=== PATIENT | female | born 1995 | race Caucasian/White ===

== ENCOUNTER 2016-10-06 10:09 | Inpatient (IN) | payer BC ==
[~2016-10-06] VITALS: Ht 165.1 cm; Wt 88.6 kg
[2016-10-06] MEDS ORDERED: LACTATED RINGER'S 1000ML 1,000 ML IV PRN (11:21)
[2016-10-06] MEDS ORDERED: PATIENT'S ALLERGY INFO NEEDS ENTERED SCH (11:30)
[2016-10-06] MEDS ORDERED: PENICILLIN G POTASSIUM IV 6 MU in DEXTROSE 5% 250ML 250 ML IV ONE (11:45)
[2016-10-06] MEDS: LACTATED RINGER'S 1000ML 1,000 ML IV SCH ×2 (12:03→18:18)
[2016-10-06 12:30] LABS: HEMATOCRIT 39.9 % (37-47); MEAN CELL VOLUME 81.9 fL (80-100); MEAN CORPUSCULAR HEMOGLOBIN 27.3 pg (25-34); MEAN CORPUSCULAR HGB CONC 33.3 g/dl (32-36); MEAN PLATELET VOLUME 10.7 fL (7.4-10.4); PLATELET COUNT 328 K/uL (130-400); RED BLOOD COUNT 4.87 M/uL (4.2-5.4); WHITE BLOOD COUNT 12.12 K/uL (4.8-10.8)
[2016-10-06 12:37] VITALS: Ht 165.1 cm; Wt 88.6 kg
[2016-10-06] MEDS ORDERED: PRENTAB26 PO (12:42)
--- NOTE | 2016-10-06 12:44 | HISTORY & PHYSICAL EXAMINATION ---
DATE OF ADMISSION: 10/06/2016 LABOR AND DELIVERY ADMISSION NOTE CHIEF COMPLAINT: Uterine contractions. HISTORY OF PRESENT ILLNESS: The patient is a 21-year-old at 38 weeks and 4 days of gestation, who is presenting to labor and delivery with contractions. She woke up this morning at 4:00 a.m. with contractions which been every 4-5 minutes and getting more painful. She denies leakage of fluid or vaginal bleeding. She reports good movements. She denies headaches, change in her vision, nausea, vomiting, epigastric or right upper quadrant pain. She denies chest pain, shortness of breath, fever, chills or leg pain. Her has been uncomplicated. PAST MEDICAL HISTORY: Unremarkable. The patient denies any medical problems. PAST SURGICAL HISTORY: Tonsillectomy. MEDICATIONS: vitamins. ALLERGIES: No known drug allergies. SOCIAL HISTORY: The patient denies smoking, alcohol or drug use. GYNECOLOGIC HISTORY: The patient denies any history of STDs including Chlamydia, gonorrhea, herpes. LABS: Her GC chlamydia cultures were negative. Her blood type was O positive, antibody screen negative. TSH was 1.23, H&H was 13/40, platelets 393. Hepatitis B surface antigen negative, HIV nonreactive, RPR nonreactive, rubella titer positive. Hepatitis C antibody negative. Urine culture was negative. Quad screening test was negative. One hour Glucola was 98. Repeat H&H was 12/36.7, platelets 321. GBS culture was positive on September 16. PHYSICAL EXAMINATION: GENERAL: The patient is alert, oriented x3, not in acute distress. CARDIOVASCULAR SYSTEM: S1, S2, RRR. LUNGS: Clear to auscultation bilaterally. ABDOMEN: Soft, gravid. EXTREMITIES: Nontender, no edema. PELVIC: Cervix is 5 cm dilated, 80% effaced, -2 with bulging membranes and vertex. VITAL SIGNS: Her maternal temperature was 98.7, pulse 90, respirations 20, blood pressure 137/86. heart rate 140s, category 1. Tocometer contractions every 3-4 minutes. ASSESSMENT AND PLAN: The patient is a 21-year-old 1, para 0 at 38 weeks and 4 days of gestation, presenting in labor with contractions and cervical change. Vital signs stable, afebrile. No medical problems. Group B streptococcus positive. heart rate reassuring. Plan is admit her, start IV fluids, start IV penicillin for Group B streptococcus, expectant management and anticipate spontaneous vaginal delivery. The patient desires epidural when she is painful. All questions were answered. JEAN PIERRE
[2016-10-06] MEDS: PENICILLIN G POTASSIUM IV 3 MU in DEXTROSE 5% 100ML 100 ML IV PRN ×2 (16:00→20:28)
[2016-10-06] MEDS ORDERED: FENTANYL 2MCG/ML ROPIV 1.25MG/ML 100ML BAG EPI ONE (17:25)
[2016-10-06] MEDS ORDERED: EpHEDrine SULFATE INJ 50 MG/ML AMP ONE (17:25)
[2016-10-06] MEDS ORDERED: BUPIVACAINE 0.25% 30 ML VIAL ONE (17:25)
[2016-10-06] MEDS ORDERED: FENTANYL CITRATE INJ 50 MCG/1 ML 2 ML VIAL ONE (17:26)
[2016-10-06] MEDS ORDERED: LACTATED RINGER'S 1000ML 500 ML IV PRN ×2 (18:26→20:00)
[2016-10-06] MEDS ORDERED: NALOXONE HCL INJ 1 MG in SODIUM CHLORIDE 0.9% 1000ML 1,000 ML IV PRN (18:26)
[2016-10-06] MEDS ORDERED: FENTANYL 2MCG/ML ROPIV 1.25MG/ML 100ML BAG EPI PRN (18:30)
[2016-10-06] MEDS ORDERED: NALBUPHINE HCL INJ 10 MG/ML AMP IV PRN (18:30)
[2016-10-06] MEDS ORDERED: EpHEDrine SULFATE INJ 50 MG/ML AMP IV PRN (18:30)
[2016-10-06] MEDS ORDERED: NALOXONE HCL INJ 0.4 MG/1 ML VIAL/CARP IV PRN (18:30)
[2016-10-06] MEDS ORDERED: DiphenhydrAMINE HCL 50 MG/ML VIAL IV PRN (18:30)
[2016-10-06] MEDS ORDERED: OXYTOCIN 30 UNITS/500ML NSS IV PRN (20:00)
[2016-10-06] MEDS ORDERED: NURSING VERBAL MED ORDER ONE (23:30)
[2016-10-06] MEDS ORDERED: CEFAZOLIN SOD 2000 MG in DEXTROSE 5% 50ML IV STA (23:31)
[2016-10-07] MEDS ORDERED: LACTATED RINGER'S 1000ML 1,000 ML IV SCH (00:06)
[2016-10-07] MEDS ORDERED: MISOPROSTOL 200 MCG TAB PR STA (00:12)
[2016-10-07] MEDS ORDERED: ACETAMINOPHEN 325 MG TAB PO PRN (00:15)
[2016-10-07] MEDS ORDERED: HYDROCORTISONE ACETATE 25 MG SUPP PR PRN (00:15)
[2016-10-07] MEDS ORDERED: LANOLIN OINT EXT PRN ×2 (00:15)
[2016-10-07] MEDS ORDERED: OXYCODONE/ACETAMINOPHEN 5-325 TAB PO PRN (00:15)
[2016-10-07] MEDS ORDERED: SUPERCREAM 0.870 % 15GM JAR EXT PRN (00:15)
[2016-10-07] MEDS ORDERED: OXYTOCIN 30 UNITS/500ML NSS IV PRN (00:15)
[2016-10-07] MEDS ORDERED: DIPHTHERIA/TETANUS/PERTUSSIS 0.5 ML SYR/VIAL IM. ONE (00:15)
[2016-10-07] MEDS ORDERED: MEASLES, MUMPS & RUBELLA VIRUS VIAL SQ. ONE (00:15)
[2016-10-07] MEDS ORDERED: BENZOCAINE 20% AER SPR 82.5 GM CAN EXT PRN (00:15)
[2016-10-07] MEDS: IBUPROFEN 600 MG TAB PO PRN ×4 (00:16→22:34)
--- NOTE | 2016-10-07 00:43 | Anesthesia Procedure Note ---
Anesthesia Epidural Removal Nt Date & Time Oct 07, 2016 at 00:42 Vital Signs Pain Intensity: 3.0 Notes Mental Status: alert / awake / arousable, participated in evaluation Nausea / Vomiting: adequately controlled Pain: adequately controlled Airway Patency, RR, SpO2: stable & adequate BP & HR: stable & adequate Hydration State: stable & adequate Neuraxial Anesthesia: was administered, sensory block is resolving Anesthetic Complications: no major complications apparent, pt satisfied with anesthetic care Epidural: removed without complications, with tip intact
--- NOTE | 2016-10-07 00:48 | DELIVERY SUMMARY ---
DATE OF OPERATION: 10/06/2016 TIME OF DELIVERY OF BABY: 2256 p.m. TIME OF DELIVERY OF PLACENTA: 2312 p.m. DETAILS OF DELIVERY: Patient was found to be fully dilated and desired to push. She pushed for about 15 minutes and delivered the head without difficulty. Shoulders were delivered with minimal traction and the baby was delivered completely. There was a loose nuchal cord around the next x1, which was reduced. Baby was handed off to the mother, where the mouth and nose were suctioned, cord was clamped x2 and cut at 1 minute and it was a 3-vessel cord. Cord blood was obtained. Vagina and perineum were checked for lacerations. There was a small second-degree laceration in the perineum, which was repaired with 2-0 Vicryl in a running locked fashion. Good hemostasis was achieved. Placenta was found to be in the vagina and delivered spontaneously and appeared to be intact and complete. Uterus was explored and found irregular surface at the fundus and posterior wall, which was felt to be retained placenta. The patient and the family was informed. She had good pain control with her epidural. Her nurse applied fundal pressure and my right hand in the vagina aiding, manually a boom curette was introduced, into the uterine cavity. The irregular surface was curetted and small pieces of placenta were obtained and sent to pathology. The uterine wall was found to be smooth. The instruments were removed from vagina. Bed side Ultrasound was done and found to have a regular 6-mm endometrium with no signs of retained placenta. Estimated blood loss was 300 ml. Procedure was ended and the mom and the baby tolerated the procedure well. Sponge, lap and needle counts were correct x2 at the end of the procedure. The baby was a viable female with Apgars 8/9. Mother received penicillin during labor for GBS and cefazolin IV during curettage. I was present during whole procedure. I attest to the content of the Intraoperative Record and any orders documented therein. Any exceptions are noted below. JEAN PIERRE
[2016-10-07 02:45] VITALS: BP 125/83; PULSE 98; TEMP 37
[2016-10-07] MEDS ORDERED: MISOPROSTOL 200 MCG TAB ONE ×2 (02:50→02:51)
[2016-10-07 05:00] VITALS: BP 118/74; PULSE 87; TEMP 36.7
--- NOTE | 2016-10-07 07:06 | OB/GYN Progress Note ---
PHYSICIAN ANESTHESIOLOGIST Progress Note Date of Service Oct 07, 2016. Subjective conversation w/ patient, physical exam Ambulation: ambulating normally Voiding: no voiding problems Passing Gas: Yes Diet Tolerance: Regular Diet Lochia: Moderate Feeding Type: Breast Feeding Pain: 3/10 Notes: Doing well. Tolerating regular diet. Ambulating without difficulty. Lochia moderate. Objective Vital Signs Date Time Temp Pulse Resp B/P (MAP) Pulse Ox O2 Delivery O2 Flow Rate FiO2 10/07/16 05:00 36.7 87 18 118/74 (89) Room Air 10/07/16 02:45 37.0 98 18 125/83 (97) Room Air Physical Exam General Appearance: WELL-APPEARING Respiratory/Chest: chest non-tender, lungs clear Cardiovascular: regular rate, rhythm Abdomen: normal bowel sounds, soft Fundus: Firm Extremities: normal range of motion, non-tender, no calf tenderness Laboratory Results Last 24 Hours Test 10/06/16 12:01 White Blood Count 12.12 K/uL Red Blood Count 4.87 M/uL Hemoglobin 13.3 g/dL Hematocrit 39.9 % Mean Corpuscular Volume 81.9 fL Mean Corpuscular Hemoglobin 27.3 pg Mean Corpuscular Hemoglobin Concent 33.3 g/dl RDW Standard Deviation 43.9 fL RDW Coefficient of Variation 14.8 % Platelet Count 328 K/uL Mean Platelet Volume 10.7 fL Assessment and Plan Post- Day Number: 1 Continue Routine Care: -Continue routine care -Anticipate d/c home tomorrow
[2016-10-07 07:30] VITALS: BP 132/87; PULSE 72; TEMP 36.9; O2SAT 99
[2016-10-07] MEDS: DOCUSATE SODIUM 100 MG CAP PO SCH ×2 (08:18→20:11)
[2016-10-07] MEDS: FERROUS SULFATE 325 MG TAB PO SCH (08:19)
[2016-10-07] MEDS: PRENATAL VITAMIN TAB PO SCH (08:19)
[2016-10-07 11:19] VITALS: BP 138/87; PULSE 82; TEMP 36.8; O2SAT 98
[2016-10-07 15:45] VITALS: BP 112/71; PULSE 88; TEMP 36.5; O2SAT 100
[2016-10-07 20:00] VITALS: BP 125/78; PULSE 87; TEMP 36.5
[2016-10-08 00:30] VITALS: BP 130/87; PULSE 80; TEMP 36.5
[2016-10-08 08:10] LABS: HEMATOCRIT 33.4 % (37-47)
[2016-10-08] MEDS: DOCUSATE SODIUM 100 MG CAP PO SCH (08:34)
[2016-10-08] MEDS: PRENATAL VITAMIN TAB PO SCH (08:34)
[2016-10-08] MEDS: FERROUS SULFATE 325 MG TAB PO SCH (08:34)
[2016-10-08 09:00] VITALS: BP 107/73; PULSE 85; TEMP 36.9; O2SAT 99
--- NOTE | 2016-10-08 10:47 | OB/GYN Progress Note ---
GOVERNMENT AFFAIRS DIRECTOR Progress Note Date of Service Oct 08, 2016. Subjective conversation w/ patient, physical exam Ambulation: ambulating normally Voiding: no voiding problems Passing Gas: Yes Diet Tolerance: Regular Diet Lochia: Moderate Review of Systems Constitutional: No fever, No chills, No sweats, No weight loss, No weakness, No fatigue, No problem reported Respiratory: No cough, No sputum, No wheezing, No shortness of breath, No dyspnea on exertion, No dyspnea at rest, No hemoptysis, No problem reported Cardiac: No chest pain, No orthopnea, No PND, No edema, No claudication, No palpitations, No problem reported Breast: No see HPI, No breast lump, No change in shape, No nipple discharge, No breast pain, No problem reported Abdomen: No pain, No nausea, No vomiting, No diarrhea, No constipation, No GI bleeding, No problem reported Female : No see HPI, No dysuria, No urinary frequency, No hematuria, No incontinence, No abnormal vaginal bleeding, No vaginal discharge, No problem reported Objective Vital Signs Date Time Temp Pulse Resp B/P (MAP) Pulse Ox O2 Delivery O2 Flow Rate FiO2 10/08/16 09:00 36.9 85 16 107/73 (84) 99 Room Air 10/08/16 00:30 Room Air 10/08/16 00:30 36.5 80 18 130/87 (101) Room Air 10/07/16 20:00 36.5 87 18 125/78 (94) Room Air 10/07/16 15:45 36.5 88 18 112/71 (85) 100 Room Air 10/07/16 15:45 100 Room Air 10/07/16 11:19 36.8 82 16 138/87 (104) 98 Room Air Physical Exam General Appearance: WELL-APPEARING, WD/WN, NO APPARENT DISTRESS Respiratory/Chest: chest non-tender, lungs clear, normal breath sounds, no respiratory distress, no accessory muscle use Cardiovascular: regular rate, rhythm, no edema, no gallop, no JVD, no murmur Abdomen: normal bowel sounds, non tender, soft, no organomegaly, no pulsatile mass Fundus: Firm Extremities: normal range of motion, non-tender, normal inspection, no pedal edema, no calf tenderness Laboratory Results Last 24 Hours Test 10/08/16 07:39 Hemoglobin 11.0 g/dL Hematocrit 33.4 % Assessment and Plan Post- Day Number: 1 Continue Routine Care: PPD 32 pt doing well Nurse had expressed concern with pt' affect spoke to pt about her affect. she denies depression, suicidal ideations or feeling of hurting anyone pt is with spouse at time of discussion D/c home with instructions and resources and knows to call office if she ever feels depressed and or thinks she needs to be seen
[2016-10-08] MEDS ORDERED: MTR600X PO (10:48)
--- NOTE | 2016-10-08 10:48 | Discharge Instructions ---
Discharge Instructions Date of Service Oct 08, 2016. Admission Reason for Admission: R/O Labor Discharge Discharge Diagnosis / Problem: Discharge Goals Goal(s): Routine recovery after delivery Activity Recommendations Activity Limitations: resume your previous activity ACTIVITY RECOMMENDATIONS: * Gradual return to full activity over the next 2-3 weeks. * No lifting - nothing heavier than baby over the next 2-3 weeks. * Do not engage in vigorous exercise, sexual activity or sports until cleared by your physician. * Do not drive or operate any motorized equipment until cleared by your physician. * You may shower/bathe daily. BREAST CARE: If you are not breast feeding: * Wear a supportive bra 24 hours a day for one to two weeks. * Avoid stimulating your breasts and nipples as much as possible during the first few weeks after delivery. * When taking a shower, have the warm water hit your back, not breasts. * When your breasts feel full, apply ice packs. Usually three to four times a day helps ease the discomfort. * Take a mild pain medication (Tylenol/Motrin) when you are uncomfortable. If breast feeding: * Use breast milk to lubricate nipples. Lansinoh cream may be used for sore nipples. You do not need to remove cream prior to breast feeding. If using a different brand of cream, check the label for directions regarding removal of cream prior to nursing. * Wear a supportive bra. * If having problems with breasts or breast feeding, call a bmw sales consultant or your health care provider. EPISIOTOMY CARE: After delivery, if you have an episiotomy (stitches), the following steps will ease discomfort and aid healing. * For the first 24 hours after delivery, place ice packs next to your episiotomy to help reduce swelling. * After the first 24 hour-period, sitz baths, either portable or in the tub, are suggested. A shower with a shower arm sprayed over the episiotomy may be comforting. * Madisyn care should be done after each voiding and bowel movement. Squirt warm water from a plastic bottle over the perineum (region of the body between the anus and urinary opening) and pat dry. * Use Dermoplast to ease discomfort. Shake container. [place] directly over the episiotomy. * Place a Tucks on a clean sanitary pad next to your episiotomy. OVER THE COUNTER MEDICATION: * For discomfort or pain, you may use Acetaminophen (Tylenol), Ibuprofen (Advil ), or Naproxen (Aleve) following the package directions. * For constipation you may use Colace following the package directions. SPECIAL CARE INSTRUCTIONS: When you are discharged from the hospital, it is important for you to follow the instructions listed below: * During the first week at home, you should be able to care for yourself and your baby. In addition, the usual light household activities are encouraged. * Limit your activities to the way you feel. Do not try to clean the house or move furniture. Be sensible. * If you actively engage in sports and have done so up until the time of your delivery, you may resume these activities as soon as you feel able. This may take up to one month or even longer. Use good judgment. * Continue to take your vitamins for at least six weeks after the of your baby. * Your diet need not be limited unless you were on a special diet before your delivery. Breast-feeding mothers need around 2500 calories per day and at least 64-80 ounces of fluid per day (8 to 10 glasses). * You should eat foods from the four major food groups. Crash diets or fad diets are to be avoided. Eating lean meats, fresh fruits and vegetables, low-fat dairy products, high fiber foods and a regular exercise program, will help you get back to your pre- weight without putting your health at risk. * Constipation is sometimes a problem after delivery. Take a mild laxative as needed. If breast feeding, Milk of Magnesia is acceptable to use. You may use a suppository or Fleets enema if no episiotomy. * A daily shower or tub bath is suggested. Be sure to thoroughly and gently dry the perineum. * A bloody vaginal discharge will usually continue until around four weeks post . A small amount of bleeding may continue for as long as six weeks. Vaginal discharge changes from the bright red bleeding after delivery to pink then brownish and finally yellowish-pink before becoming white and disappearing. * Bleeding may increase with activity. Your first period may come in 4-8 weeks. If you are breast feeding, your period may be delayed even longer. * [place] (sex) can begin whenever both you and your partner feel comfortable and do not have any form of genital infection. It is recommended that you wait until after your return appointment and discuss with your physician. If you have questions, please talk to your health care practitioner. A condom should be used to prevent infection and . * Foreplay, gentle intercourse and lubrication is very important the first several times to prevent pain. A water-based lubricant such as K-Y jelly or Astroglide may be used. * Tampons may be used six weeks after delivery. * Douching should be avoided for 6 weeks after delivery. * If you have RH negative blood and your baby is RH positive, you will receive RHOGAM by injection prior to discharge. The nurse will give you a card to keep with you that has the date and place that you received RHOGAM after delivery. * During your care, you had a Rubella screen done to check for the presence of rubella antibodies in your blood. If your test was negative, you will receive a Rubella vaccine prior to discharge. This vaccine may cause a fever, soreness at the injection site and flu-like symptoms. If these symptoms persist, notify your health care practitioner. is not advised for three months after a Rubella vaccine. There is a higher chance of having a baby with defects if conceived within three months of getting the vaccine. * If you were discharged 24 hours from delivery or before 48 hours: Visiting nurses will come to your home 48 hours after discharge to assess you and your baby. The visiting nurse will meet with you while you are in the hospital to arrange a time and get directions to your home. * Verbalizes understanding of car seat law as reviewed with patient nursing. * Car Seat hand-out given and reviewed with patient by nursing. * Shaken baby information reviewed with patient by nursing. Call you doctor if: * Heavy bleeding (saturating several pads an hour) or passing clots the size of your fist. * A fever >101 degrees F (38.3 degrees C) on two occasions four hours apart and/or chills. * Unusual pain in the pelvic or vaginal areas. * "Baby Blues" lasting longer than two weeks. If you have any questions or concerns, call your health care practitioner at . FOLLOW-UP VISIT: * Please call the office at to schedule a 6 week examination. It is important you keep this appointment. * It is important for you to make arrangements for either yearly or twice yearly check-ups thereafter. . Current Hospital Diet Patient's current hospital diet: Regular OB Diet Discharge Diet Recommended Diet: Regular Diet Pending Studies Studies pending at discharge: no Medical Emergencies . Who to Call and When: Medical Emergencies: If at any time you feel your situation is an emergency, please call 911 immediately. . Non-Emergent Contact Non-Emergency issues call your: Specialist . . "Provider Documentation" section prepared by Jaiden Chariez. . VTE Core Measure Inpt VTE Proph given/why not?: Treatment not indicated
[2016-10-08 14:45] VITALS: BP_DIAS 73; PULSE 85; TEMP 36.9
[2016-10-08] MEDS ORDERED: BISACODYL 5 MG TABEC PO SCH (20:00)
[2016-10-09] MEDS ORDERED: BISACODYL 10 MG SUPP PR PRN (07:00)
== END 2016-10-08 15:55 | disposition home or self-care (01) | DRG 775 ==
LOC: C.LD 10:09 → C.OPB 10:09 → C.LD 11:22 → C.OBG 10-07 02:45
PROVIDERS: ADMIT Obstetrics & Gynecology; ATTEND Obstetrics & Gynecology
PROC: 0KQM0ZZ Repair Perineum Muscle, Open Approach (ICD-10-PCS; principal; 2016-10-07)
PROC: 10E0XZZ Delivery of Products of Conception, External Approach (ICD-10-PCS; principal; 2016-10-07)
DX: O69.81X1 Labor and delivery complicated by cord around neck, without compression, fetus 1 (principal); O70.1 Second degree perineal laceration during delivery; Z22.330 Carrier of Group B streptococcus; Z37.0 Single live birth; Z3A.38 38 weeks gestation of pregnancy

== ENCOUNTER 2023-02-27 04:47 | Inpatient (IN) ==
--- OUTSIDE RECORDS SUMMARY | 2023-02-27 04:56 | External Medical Summary ---
Author Name Unknown Address Unknown Organization [id number]:[facility] - [address] [facility] [address] Laboratory Report Ordering Provider Test Date Status ANGELIQUE MASSEY 02/24/2023 19:08:41 Final ADMITTED patient Observation Date Value Abnormality Reference (Units ) Status Adenovirus DNA [Presence] in Nasopharynx by ZEKE with non-probe detection 02/24/2023 19:08:41 Negative Negative Final Human coronavirus 229E RNA [Presence] in Nasopharynx by ZEKE with non-probe detection 02/24/2023 19:08:41 Negative Negative Final Human coronavirus HKU1 RNA [Presence] in Nasopharynx by ZEKE with non-probe detection 02/24/2023 19:08:41 Negative Negative Final Human coronavirus NL63 RNA [Presence] in Nasopharynx by ZEKE with non-probe detection 02/24/2023 19:08:41 Negative Negative Final Human coronavirus OC43 RNA [Presence] in Nasopharynx by ZEKE with non-probe detection 02/24/2023 19:08:41 Negative Negative Final SARS-CoV-2 (COVID-19) RNA [Presence] in Nasopharynx by ZEKE with non-probe detection 02/24/2023 19:08:41 Positive Abnormal Negative Final Coronavirus SARS detected by PCR (amplified probe). Test results reported to [facility]. Human metapneumovirus RNA [P resence] in Nasopharynx by ZEKE with non-probe detection 02/24/2023 19:08:41 Negative Negative Final Rhinovirus+Enterovirus RNA [ Presence] in Nasopharynx by ZEKE with non-probe detection 02/24/2023 19:08:41 Negative Negative Final Influenza virus A RNA [Prese nce] in Nasopharynx by ZEKE with non-probe detection 02/24/2023 19:08:41 Negative Negative Final Influenza virus B RNA [Prese nce] in Nasopharynx by ZEKE with non-probe detection 02/24/2023 19:08:41 Negative Negative Final Parainfluenza virus 1 RNA [P resence] in Nasopharynx by ZEKE with non-probe detection 02/24/2023 19:08:41 Negative Negative Final Parainfluenza virus 2 RNA [P resence] in Nasopharynx by ZEKE with non-probe detection 02/24/2023 19:08:41 Negative Negative Final Parainfluenza virus 3 RNA [P resence] in Nasopharynx by ZEKE with non-probe detection 02/24/2023 19:08:41 Negative Negative Final Parainfluenza virus 4 RNA [P resence] in Nasopharynx by ZEKE with non-probe detection 02/24/2023 19:08:41 Negative Negative Final Respiratory syncytial virus RNA [Presence] in Nasopharynx by ZEKE with non-probe detection 02/24/2023 19:08:41 Negative Negative F inal Bordetella pertussis.pertuss is toxin promoter region [Presence] in Nasopharynx by ZEKE with non-probe detection 02/24/2023 19:08:41 Negative Negative Final Chlamydophila pneumoniae DNA [Presence] in Nasopharynx by ZEKE with non-probe detection 02/24/2023 19:08:41 Negative Negative Final Mycoplasma pneumoniae DNA [P resence] in Nasopharynx by ZEKE with non-probe detection 02/24/2023 19:08:41 Negative Negative Final Bordetella parapertussis IS1 001 DNA [Presence] in Nasopharynx by ZEKE with non-probe detection 02/24/2023 19:08:41 Negative Negative F inal
The primers that detect Rhinovirus may cross react with some Enterorviruses. The validation of bronchial specimens, tracheal aspirates, and throats for this assay was developed and performance characteristics determined by [email or web address]. The validation of alternate specimen types has not been cleared or approved by the U.S. Food and Drug Administration (FDA). It has been determined that such clearance or approval is not necessary. Performing Location [facility] - [facility] [address] [place] [facility] [id number]
--- OUTSIDE RECORDS SUMMARY | 2023-02-27 04:56 | External Medical Summary | Summary of Care ---
Author Name Unknown Organization [facility] Address [address] [place] [address] Phone [phone] Care Team Providers Care Fine Arts Chair Name Role Phone Harriet Ellis MD Primary Care Prov ider Reason for Visit * Reason Onset Date Comments Contractions 02/27/2023 Encounter Details Date Type Department Care Team (Late st Contact Info) Description 02/27/2023 Telephone [facility] Obstetrics [address] [place] [address] Katy Birmingham MD [address] [place] [address] Contractions Allergies Active Allergy Reactions Criticality Noted Date Comments Pollen Other (Please comment) 03/06/2016 documented as of this encounter (statuses as of 02/27/2023) Medications Medication Sig Dispensed Refills Start Date End Date Status Docusate Sodium 100 MG Oral Capsule (Colace)Indication s:Constipation during , antepartum Take 1 Capsule by mouth daily as needed for Constipation. 30 Capsule 2 07/22/2022 Active Complete Susy DHA 29-1-200 & 200 MG OralIndications:Nur pervision of high-risk , unspecified trimester Take one tablet and one capsule by mouth daily as directed on the package. 60 Each 12 07/22/2022 Active Nirmatrelvir&Riton avir 300/100 20 x 150 MG & 10 x 100MG Oral Tablet Therapy Pack (Paxlovid (300/100)) Take 2 pink tablets of Nirmatrelvir and 1 white tablet of Ritonavir two times a day by mouth. 30 Tablet 0 02/24/2023 Active documented as of this encounter (statuses as of 02/27/2023) Active Problems Problem Noted Date Diagnosed Date tachycardia before the onset of labor 01/31 COVID-19 affecting in third trimester 02/24/2023 Echogenic intracardiac focus of fetus on ultrasound 10/06/2022 Last Assessment & Plan: This is a variant of normal and is not expected to resolve during . No further ultrasound follow-up indicated. Constipation during , antepartum 2022 Supervision of high-risk , third trimes ter 07/22/2022 Overview: Estimated Date of Delivery: 03/01/23 Continue vitamin. O positive. Rubella and varicella immune. Qnatal low risk. S/p anatomy ultrasound at [facility]. Passed 1 glucose test. S/p CBC - no anemia. Tdap vaccine completed on 12/11/2022. GBS culture negative. Completed influenza vaccine. contraception: partner vasectomy. Desires to breastfeed. Desires a breast pump. 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 Qnatal low risk. Declined genetic counseling at this time. Last Assessment & Plan: Recommend cffDNA (Qnatal) screening after 10 weeks. Consider genetics consult if patient has additional questions or concerns regarding this history. History of IUFD 09/27/2019 Overview: History of demise at 37w2d of baby boy (Bhavesh) with Trisomy 22. 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 Serial growth ultrasounds and echocardiogram were not performed in most recent , as etiology of CHD and loss were known to be related to chromosomal abnormality. Last Assessment & Plan: She presents for a anatomy survey. She has a history of a prior child with multiple anomalies, including CHD. This child was diagnosed with Trisomy 22, and the ended with a loss at term. In her last , we reviewed risks/benefits of additional follow-up and elected for routine care following the anatomic survey. Labs reviewed: -- cffDNA low risk for aneuploidy We reviewed the results of today's ultrasound. The estimated weight is appropriate for gestational age. An echogenic intracardiac focus is noted. The remainder of the visualized anatomy is unremarkable in appearance. The amniotic fluid amount appears normal. Ultrasound is not able to identify all anomalies, but it is reassuring that no anomalies were seen today. Anxiety disorder affecting , antepartum 11/29/2018 Overview: Patient reports situational anxiety in , but states that she is managing well without treatment at this time. Denies current depression symptoms, as well as suicidal or homicidal ideation. Last Assessment & Plan: ANXIETY AND DEPRESSION CONSIDERATIONS: Untreated maternal anxiety and depression may be associated with an increased risk of multiple poor obstetrical outcomes including miscarriages, low weight, and delivery. Women with a history of anxiety or depression are at risk for recurrence both during and/or the period. Studies of first-trimester SSRI exposure do not demonstrate consistent data to support an increased risk for structural malformations. Anti-anxiety or depression medications have been associated with transient effects (withdrawal syndrome). RECOMMENDATIONS: Mental illness can and should be treated during when the benefits of treatment outweigh potential risks. Referral to behavioral health services as clinically indicated. Depression complicating , antepartum Last Assessment & Plan: DISCUSSION: 1. Discussed with patient that depression can and should be treated during when the benefits of treatment outweigh potential risks. Risks of leaving maternal depression untreated or inadequately treated are maternal suicide/homicide, an increased risk of depression/psychosis, relapse during and impaired maternal-child bonding. Risks of untreated mental illness pose additional risks in , such as miscarriage, low weight, and delivery. 2. Discussed that although there have been reports in the past regarding anti-depressant therapy and abnormalities or complications, research has not confirmed or supported this claim. Studies of first-trimester SSRI exposure do not demonstrate consistent data to support an increased risk for structural malformations, however, echocardiogram is indicated at this time for patients who were treated with paroxetine (Paxil) in the first trimester. 3. Anti- depressants have been associated with transient effects (withdrawal syndrome). RECOMMENDATIONS: 1. Women who are stable from a psychiatric standpoint may be able to stay on their medication after consultation between their mental health provider and their obstetric provider. However, for most women, accessible and acceptable mental health treatment may be very limited. 2. Women who would like to discontinue their medication may attempt medication tapering and discontinuation under the direction of their prescribing physician. 3. Women who have recurrent depression or who have depression despite medication may benefit from psychotherapy to replace or augment medication. 4. Women with severe depression should continue their medication. 5. Alternative treatments such as light therapy, acupuncture treatment and omega-3 fatty acids may be tried if the patient desires. 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 Saw Hem/Onc in 2020 for same. Most recent platelet count normal: Latest Reference Range & Units 07/22/22 10:24 PLT 140 - 400 K/uL 374 Last Assessment & Plan: 1. We reviewed thrombocytosis and most recent platelet counts. Recommend assessing platelet count again in second trimester. 2. Consider re-referral to Hematology if needed. Estimated Date of Delivery Comme nts Yes 03/01/2023 Based on Ultraso und documented as of this encounter (statuses as of 02/27/2023) Resolved Problems Problem Noted Date Diagnosed Date Resolved Date Abnormal uterine bleeding (AUB) 08/29/2020 07/23/2022 Vaginal delivery 04/29/2020 06/08/2020 Vaginal discharge 03/26/2020 04/24/2020 21 weeks gestation of 12/23/2019 01/24/2020 Encounter for scre ening for chromosomal anomalies 10/25/2019 12/23/2019 Moderate vaginal bleeding 05/11/2019 Other specified re lated conditions, unspecified trimester 04/09/2019 07/23/2022 Chromosomal abnormality in f etus, affecting management of mother, antepartum 03/03/2019 020 Last Assessment & Plan: We met in conjunction with Madelin Camacho LG. We reviewed the range of outcomes with non-mosaic Trisomy 22, with an overall poor prognosis expected. She notes that the possibility of prolonged life outside of the initial hospitalization is a concern to her, and is interested in further information that may give a more precise estimate of life expectancy. We discussed that this can vary depending on the conditions identified, and that details regarding the cardiac anatomy likely have a major role in determining this, though ultimately it will be difficult to give a precise estimate. As she is interested in this information, we suggested that she have a follow-up with pediatric cardiology prior to her planned MDC at 36 weeks, as this may provide further information that can be used in the care discussion. She was agreeable to this plan. 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 She has elected to pursue palliative care measures and was originally planning to be seen again at 36 weeks gestation. However, she requested earlier follow-up to confirm that the prior noted findings are present and without significant improvement. We discussed that today's findings are overall consistent with the prior exams. The heart continues to appear abnormal. The bowel appears dilated, with peristalsis noted. This is suggestive of an intestinal abnormality such as atresia/obstruction. The clubbed foot is not well-visualized. growth was not assessed. The amniotic fluid appears low, with a single pocket of 3 cm visualized. The genitalia continue to appear abnormal. Supervision of high-risk pre gnancy, unspecified trimester 11/29/2018 06/08/2020 Thrombocytosis 11/29/2018 02/14/2020 Last Assessment & Plan: She reports a history of thrombocytosis, as well as easy bleeding and bruising. She notes that she had bleeding after her prior delivery, and that she and her family are concerned about the possibility of a hemorrhage in this as well. We reviewed that a number of factors can lead to hemorrhage. However, with her report of easy bleeding/bruising in the past as well as thrombocytosis, I suggested consideration of a referral to hematology for further assessment. Of note, her most recent platelet count on 02/17/19 was normal at 371,000. Abnormal quad screen 11/24/2018 020 Encounter for supervision of high risk in second trimester, antepartum 11/24/2018 05/06/2019 Anxiety in in [place] trimester, antepartum 11/15/2018 05/06/2019 Reactive airway disease in pediatric patient 8 09/23/2017 Encounter for supervision of normal first in third trimester 05/28/2016 01/26/2017 Encounter for supervision of normal first in first trimester 03/06/2016 08/20/2016 documented as of this encounter (statuses as of 02/27/2023) Immunizations Name Administration Dates Next Due COVID-19 mRNA, LNP-s, No Pre serve, 2-Dose Series (Moderna) 05/09/2020,03/28/2020 COVID-19, mRNA, LNP-s, PF, B ooster, 100mcg/0.5mg (Moderna) 01/31/2021 Covid-19, Mrna, Lnp-s, Pf, Bivalent, 30 Mcg, IM, 12 yrs and above (Pfizer) 01/06/2022 PPD 08/19/2017 Seasonal Influenza, PF, 6 M & above, IM , (FluLaval or Fluzone) 12/01/2022,12/26/2021,11/24/2019, 0 18 Seasonal Influenza, Quadriva lent, No Preserve, IM 11/17/2016 Seasonal Influenza, Split, I IV3, With Preserve, Inj 11/22/2015 TDAP (age 10 and older)(Boostrix) 2022,02/14/2020,03/22/2019,07/25/19 17 documented as of this encounter Social History Tobacco Use Types Packs/Day Years Used Date Smoking Tobacco: Never Smokeless Tobacco: Never Alcohol Use Standard Drinks/Week Comments Not Currently 0 (1 standard drink = 0.6 oz pur e alcohol) Denies in PHQ-2 Answer Date Recorded PHQ-2 Score 4 07/08/2018 Hunger Vital Sign Answer Date Recorded Within the past 12 months, y ou worried that your food would run out before you got the money to buy more. Patient refused Within the past 12 months, t he food you bought just didn't last and you didn't have money to get more. Patient refused 06/2022 [place] Depression Scale Answer Date Recorded [place] Depression Scale Total 2 12/11/2022 The thought of harming myself has occurred to me . Never 12/11/2022 Education Answer Date Recorded What is the highest level of school you have completed or the highest degree you have received? Bachelor's degree (e.g., BA, AB, BS) 11/29/2018 Estimated Date of Delivery Comme nts Yes 03/01/2023 Based on Ultraso und Sex and Gender Information Value Date Recorded Sex Assigned at Not on file Gender Identity Female 07/04/2022 2:31 PM EDT Sexual Orientation Not on file Job Start Date Occupation Industry Not on file Not on file Not on file documented as of this encounter Functional Status Functional Status Response Date of Assess ment Are you deaf or do you have serious difficulty h earing? No 04/27/2020 Are you blind or do you have serious difficulty seeing, even when wearing glasses? No 04/27/2020 Do you have serious difficul ty walking or climbing stairs? (5 years old or older) No 04/27/2020 Do you have difficulty dress ing or bathing? (5 years old or older) No 04/27/2020 Because of a physical, menta l, or emotional condition, do you have difficulty doing errands alone such as visiting a doctor s office or shopping? (15 years old or older) No 04/27/19 21 Cognitive Status Response Date of Assessm ent Because of a physical, menta l, or emotional condition, do you have serious difficulty concentrating, remembering, or making decisions? (5 years old or older) No 04/27/2020 documented as of this encounter Miscellaneous Notes * Telephone Encounter - Katy Birmingham MD - 02/27/2023 3:09 AM EST Patient called and identified by name and ate of . Contractions since 5AM yesterday now happening every 5 minutes lasting about two minutes. Extremely painful. Reports FM. Denies LOF and VB. Patient en route to L&D. documented in this encounter Plan of Treatment Upcoming Encounters Date Type Department Care Team (Late st Contact Info) Description 02/27/2023 1:30 PM EST Imaging Radiology, [place] [address] [place] [phone] 03/03/2023 10:30 AM EST Office Visit Gynecology/Obstetics [place] [address] [place] [phone] Jessica Junior PA-C [address] [place], [place] [phone] 03/09/2023 9:14 PM EST - 03/09/2023 10:33 PM EST Surgery [facility], OB Triage, Women's Lower Level 1st Floor [address] [place] [address] Josafat Mello MD [address] [place] [address] INDUCTION FOR VAGINAL DELIVERY Scheduled Procedures Name Priority Associated Diagnoses Date/Ti me INDUCTION FOR VAGINAL DELIVERY 41 weeks gestation of 03/09/2023 9:14 PM EST Health Maintenance Due Date Last Done Comments Hepatitis B (1 of 3 - 3-dose series) 1995 Depression Screening 07/09/2019 07/08/2018 COVID-19 Vaccine ( season) 2022 01/06/2022, 01/31/2021, 05/09/2020, Additional history exists HPV/Co-Test 2023 Cervical Cancer Screening 02/12/2025 Pap Smear 02/12/2025 02/12/2022, 03/03, 08/18/2014, Additional history exists DTaP,Tdap,and Td Vaccines (5 - Td or Tdap) 12/11/2032 12/11/2022, 02/14/2020, 03/22/2019, Additional history exists Influenza Vaccine (FLU shot) Completed 04/2022, 12/26/2021, 11/24/2019, Additional history exists GARDASIL-HPV IMMUNIZATION SERIES Aged Out No longer eligible based on patient's age to complete this topic MENINGOCOCCAL (MENACTRA/MENVEO) Aged Out No longer eligible based on patient's age to complete this topic Pneumococcal Vaccine: Pediatrics (0 to 5 Years) and At-Risk Patients (6 to 64 Years) Aged Out No longer eligible based on patient's age to complete this topic documented as of this encounter Medical Devices Not on filedocumented as of this encounter Additional Health Concerns Infection Onset Date Last Indicated Resolved Time COVID-19 (confirmed) 02/24/2023 02/24/2023 documented as of this encounter Advance Directives Latest Code Status on File Code Status Date Activated Date Inactivated Comments Full Code 04/27/2020 8:12 PM 04/29/2020 3:46 PM This order reflects the patients wishes and were consensually agreed upon. Code Status History Code Status Date Activated Date Inactivated Comments Full Code 04/08/2019 6:13 PM 04/09/2019 8:15 PM This or [place] reflects the patients wishes and were consensually agreed upon. Care Teams Fine Arts Chair Relationship Specialty Start Date End Date Harriet Ellis MD [address] [place] [address] PCP - General Family Medicine 05/12/18 documented as of this encounter
--- OUTSIDE RECORDS SUMMARY | 2023-02-27 04:56 | External Medical Summary | Summary of Care ---
Author Name Unknown Organization [facility] Address [address] [place] [address] Phone [phone] Care Team Providers Care Net Programmer Analyst Name Role Phone Harriet Ellis MD Primary Care Prov ider Reason for Visit * Reason Comments Return Visit Encounter Details Date Type Department Care Team (Late st Contact Info) Description 02/24/2023 3:45 PM EST Office Visit Gynecology/Obstetics [place] [address] [place] [address] Jessica Junior PA-C [address] [place] [address] Supervision of high-risk , third trimester*; History of abnormality in previous , currently ; History of IUFD; COVID-19 affecting in third trimester Allergies Active Allergy Reactions Criticality Noted Date Comments Pollen Other (Please comment) 03/06/2016 documented as of this encounter (statuses as of 02/24/2023) Medications Medication Sig Dispensed Refills Start Date End Date Status Docusate Sodium 100 MG Oral Capsule (Colace)Indications: Constipation during , antepartum Take 1 Capsule by mouth daily as needed for Constipation. 30 Capsule 2 07/22/2022 Active Complete DHA 29-1-200 & 200 MG OralIndications:Supe rvision of high-risk , unspecified trimester Take one tablet and one capsule by mouth daily as directed on the package. 60 Each 12 07/22/2022 Active documented as of this encounter (statuses as of 02/24/2023) Active Problems Problem Noted Date Diagnosed Date COVID-19 affecting in third trimester 02/24/2023 Echogenic [...] as of this encounter (statuses as of 02/24/2023) Resolved Problems Problem Noted Date Diagnosed Date [...] & Plan: We met in conjunction with ALEXANDER Reynolds. We reviewed the range of outcomes with [...] as of this encounter (statuses as of 02/24/2023) Immunizations Name Administration Dates Next Due COVID-19 [...] money to get more. Patient refused 06/2022 [place] Depression Scale Answer Date Recorded [place] Depression Scale Total 2 12/11/2022 The thought [...] on file documented as of this encounter Last Filed Vital Signs Vital Sign Reading Time Taken Comments Blood Pressure 132/76 02/24/2023 3:45 PM EST Pulse 132 02/24/2023 3:45 PM EST Temperature 38.8 C (101.9 F) 02/24/2023 3:[address] Respiratory Rate - - Oxygen Saturation 98% 02/24/2023 3:45 PM EST Inhaled Oxygen Concentration - - Weight 94.3 kg (208 lb) 02/24/2023 3:45 PM EST Height - - Body Mass Index 33.57 07/22/2022 9:35 AM EDT documented in this encounter Functional Status Functional Status Response [...] No 04/27/2020 documented as of this encounter Progress Notes * Jessica Junior PA-C - 02/24/2023 4:02 PM EST Latesha Hernandez presents for visit at 39w2d. BP 132/76 | Pulse 132 | Temp (!) 38.8 C (101.9 F) (Tympanic) | Wt 94.3 kg (208 lb) | LMP 05/25/2022 (Approximate) | SpO2 98% | BMI 33.57 kg/m | BSA 2.1 m Patient has tested positive for COVID-19 today at around 11:30 am today. Denies vaginal bleeding, leaking of fluid, vaginal pressure, contractions, abdominal pain, or abnormal vaginal discharge. Denies blurry vision or right upper quadrant pain. Patient states she feels a decrease in baby's movements. Patient reports that she got 10 movements in 2 hours, but feels the movements are less. Patient reports that she had a headache today. Patient had fevers starting today, sinus congestion,and cough. Patient reports that test was negative yesterday, but positive for COVID today. Patient denies shortness of breath. Patient reports that highest temperature was around 102.7 degrees Farenheit. Patient took Tylenol at 3:20 pm. Physical Exam General: alert and oriented, no acute distress Pulmonary: normal respiratory effort, no accessory muscle use. Abdomen: gravid, soft, non-tender heart rate: high 170's bpm to low 180's bpm [facility] Problems (from 07/17/22 to present) Problem Noted Resolved Supervision of high-risk , third trimester 07/22/2022 by Jessica Junior PA-C No Estimated Date of Delivery: 03/01/23 Continue vitamin. O positive. Rubella and varicella immune. Qnatal low risk. S/p anatomy ultrasound at [facility]. Passed 1 glucose test. S/p CBC - no anemia. Tdap vaccine completed on 12/11/2022. GBS culture negative. Completed influenza vaccine. contraception: partner vasectomy. Desires to breastfeed. Desires a breast pump. 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 Qnatal low risk. Declined genetic counseling at this time. History of IUFD 09/27/2019 by Gareth Montelongo MD No History of demise at 37w2d of baby boy (Bhavesh) with Trisomy 22. 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 Serial growth ultrasounds and echocardiogram were not performed in most recent , as etiology of CHD and loss were known to be related to chromosomal abnormality. Anxiety disorder affecting , antepartum 11/29/2018 by Pita Scanlon CRNP No Patient reports situational anxiety in , but states that she is managing well without treatment at this time. Denies current depression symptoms, as well as suicidal or homicidal ideation. Depression complicating , antepartum 11/29/2018 by Pita Scanlon CRNP No Plan: -Spoke with Dr. Mello at [facility] labor and delivery and provided report. Dr. Mello said that he would let the pre-admit know patient is arriving. -Advised patient to go to [facility] labor and delivery immediately due to fever, maternal and tachycardia, and decrease in baby's movements. Patient verbalized understanding and agrees. -Patient aware of labor and pre-eclampsia symptoms to monitor for. Return to the office based on labor and delivery visit today or sooner if any concerns. Jessica Gu PA-C documented in this encounter Nursing Notes * Roxann López RN - 02/24/2023 3:55 PM EST Patient presents for return . Started feeling sick on Kiki [place]. Tested positive for Covid today. Took Tylenol around 1520 for fever. Reports feeling baby move but it is less - she did get 10 movements in 2 hours. documented in this encounter Plan of Treatment Upcoming Encounters Date Type Department Care Team (Late st Contact Info) Description 02/27/2023 1:30 PM EST Imaging Radiology, [address] [phone] Health Maintenance Due Date Last Done Comments Hepatitis B (1 of 3 - 3-dose series) 1995 Depression Screening 07/09/2019 07/08/2018 COVID-19 Vaccine ( - season) 2022 01/06/2022, 01/31/2021, 05/09/2020, Additional history [...] Not on filedocumented as of this encounter Visit Diagnoses Diagnosis Supervision of high-risk , third trimester- Primary History of abnormality in previous , currently with other poor obstetric history History of IUFD COVID-19 affecting in third trimester documented in this encounter Advance Directives Latest Code Status [...] and were consensually agreed upon. Care Teams Net Programmer Analyst Relationship Specialty Start Date End Date Harriet Ellis MD [address] [place] [id number] PCP - General Family Medicine 05/12/18 documented as of this encounter"
--- OUTSIDE RECORDS SUMMARY | 2023-02-27 04:56 | External Medical Summary | Summary of Care ---
Author Name Unknown Organization [facility] Address [address] [place] [facility] [place] [address] Phone [phone] Care Team Providers Care Thermostat Repairer Name Role Phone Harriet Ellis MD Primary Care Prov ider Reason for Visit * Reason Comments Return Visit Encounter Details Date Type Department Care Team (Late st Contact Info) Description 02/24/2023 3:45 PM EST Office Visit Gynecology/Obstetics [place] [address] [place] [phone] Jessica Junior PA-C [address] [place] [address] Supervision of high-risk , third trimester*; History of abnormality in previous , currently ; History of IUFD; COVID-19 affecting in third trimester Allergies Active Allergy Reactions Criticality Noted Date Comments Pollen Other (Please comment) 03/06/2016 documented as of this encounter (statuses as of 02/25/2023) Medications Medication Sig Dispensed Refills Start Date [...] as of this encounter (statuses as of 02/25/2023) Active Problems Problem Noted Date Diagnosed Date [...] as of this encounter (statuses as of 02/25/2023) Resolved Problems Problem Noted Date Diagnosed Date [...] as of this encounter (statuses as of 02/25/2023) Immunizations Name Administration Dates Next Due COVID-19 [...] money to get more. Patient refused 06/2022 Corning Depression Scale Answer Date Recorded Corning Depression Scale Total 2 12/11/2022 The thought [...] 170's bpm to low 180's bpm OB [place] Problems (from 07/17/22 to present) Problem Noted [...] No Plan: -Spoke with Dr. Mello at [facility] labor and delivery and provided report. Dr. Mello said that he would let the pre-admit know patient is arriving. -Advised patient to go to [facility] labor and delivery immediately due to fever, [...] in 2 hours. documented in this encounter Miscellaneous Notes * Addendum Note - Jessica Junior PA-C - 02/25/2023 10:33 PM EST Addended by: JESSICA JUNIOR on: 02/25/2023 10:33 PM Modules accepted: Level of Service documented in this encounter Plan of Treatment Upcoming Encounters Date Type Department Care Team (Late st Contact Info) Description 02/27/2023 1:30 PM EST Imaging Radiology, [address] [phone] 03/09/2023 9:14 PM EST - 03/09/2023 10:33 PM EST Surgery [facility], OB Triage, Women's Lower Level 1st Floor [address] [place] [address] Josafat Mello MD [address] [place] [address] INDUCTION FOR VAGINAL DELIVERY Scheduled Procedures Name [...] of IUFD COVID-19 affecting in third trimester 41 weeks gestation of Post term , unspecified episode of care documented in this encounter Additional Health Concerns Infection Onset Date Last Indicated Resolved Time Respiratory Rule-Out 02/24/2023 02/24/2023 023 9:31 PM EST COVID-19 Rule-Out 02/24/2023 02/24/2023 02/24/2023 9:31 PM EST COVID-19 (confirmed) 02/24/2023 02/24/2023 documented as of [...] and were consensually agreed upon. Care Teams Thermostat Repairer Relationship Specialty Start Date End Date Harriet Ellis MD [address] [place] [id number] PCP - General Family Medicine 05/12/18 documented as of this encounter"
--- OUTSIDE RECORDS SUMMARY | 2023-02-27 04:56 | External Medical Summary | Summary of Care ---
Author Name Unknown Organization [facility] Address [address] [facility] [place] [address] Phone [phone] Care Team Providers Care Photograph Mounter Name Role Phone Harriet Ellis MD Primary Care Prov ider Reason for Visit * Reason Onset Date Comments Test Results 02/06/2023 Encounter Details Date Type Department Care Team ([facility] st Contact Info) Description 02/06/2023 Telephone Gynecology/Obstetics [place] [address] [place] [phone] Jessica Junior PA-C [address] [place] [address] Test Results Allergies Active Allergy Reactions Criticality Noted Date Comments Pollen Other (Please comment) 03/06/2016 documented as of this encounter (statuses as of 02/07/2023) Medications Medication Sig Dispensed Refills Start Date [...] as of this encounter (statuses as of 02/07/2023) Active Problems Problem Noted Date Diagnosed Date Echogenic intracardiac focus of fetus on ultrasound [...] Tdap vaccine completed on 12/11/2022. GBS culture at 36 weeks. Completed influenza vaccine. contraception: partner vasectomy. Desires [...] as of this encounter (statuses as of 02/07/2023) Resolved Problems Problem Noted Date Diagnosed Date [...] as of this encounter (statuses as of 02/07/2023) Immunizations Name Administration Dates Next Due COVID-19 mRNA, LNP-s, No Pre serve, 2-Dose Series (Moderna) 05/09/2020,03/28/2020 COVID-19, mRNA, LNP-s, PF, B ooster, 100mcg/0.5mg (Moderna) 01/31/2021 Covid-19, Mrna, Lnp-s, Pf, Bivalent, 30 Mcg, IM, 12 yrs and above (Pfizer) 01/06/2022 PPD 08/19/2017 SEASONAL INFLUENZA, PF, 6 M & Above, IM , (FLULAVAL or FLUZONE) 12/01/2022,12/26/2021,11/24/2019, 0 18 Seasonal Influenza, Quadriva lent, [...] money to get more. Patient refused 06/2022 Nazlini Depression Scale Answer Date Recorded Nazlini Depression Scale Total 2 12/11/2022 The thought [...] (15 years old or older) No 04/27/19 Cognitive Status Response Date of Assessm ent Because of a physical, menta l, or emotional condition, do you have serious difficulty concentrating, remembering, or making decisions? (5 years old or older) No 04/27/2020 documented as of this encounter Miscellaneous Notes * Telephone Encounter - Harriet Steinberg OSA - 02/06/2023 4:10 PM EST Apt made pt aware * Telephone Encounter - Jessica Junior PA-C - 02/06/2023 4:03 PM EST Please get patient scheduled for repeat ultrasound in 3 weeks. Thank you. * Telephone Encounter - Jessica Junior PA-C - 02/06/2023 4:02 PM EST Spoke with patient. Discussed results with Dr. Montelongo. Patient notified that growth and TISHA are normal. Dr. Montelongo states that EFW + TISHA are normal. Advised repeat ultrasound in 3 weeks. Patient agreeable. Answered patient's questions. documented in this encounter Plan of Treatment Upcoming Encounters Date Type Department Care Team (Late st Contact Info) Description 02/12/2023 8:45 AM EST Office Visit Gynecology/Obstetics [place] [address] [place] [phone] Jessica Junior PA-C [address] [place] [address] 02/17/2023 8:45 AM EST Office Visit Gynecology/Obstetics [place] [address] [place] [phone] Jessica Junior PA-C [address] [place] [address] 02/24/2023 3:45 PM EST Office Visit Gynecology/Obstetics [place] [address] [place] [phone] Jessica Junior PA-C [address] [place] [address] 02/27/2023 1:30 PM EST Imaging Radiology, [place] [address] [place] [phone] Scheduled Orders Name Type Priority Associated Diagnoses Orde r Schedule US PREG FOLLOW-UP EACH FETUS Medical Imaging Routine Supervision of high-risk , third trimester History of IUFD Fundal height low for dates in third trimester Expected: 02/27/2023, Expires: 03/09/2024 Health Maintenance Due Date Last Done Comments [...] high-risk , third trimester- Primary History of IUFD Fundal height low for dates in third trimester documented in this encounter [...] and were consensually agreed upon. Care Teams Photograph Mounter Relationship Specialty Start Date End Date Harriet Ellis MD [address] [place] [phone] PCP - General Family Medicine 05/12/18 documented as of this encounter
--- OUTSIDE RECORDS SUMMARY | 2023-02-27 04:56 | External Medical Summary | Summary of Care ---
Author Name Unknown Organization [facility] Address [address] [place] [address] Phone [phone] Care Team Providers Care Dimensional Integration Engineer Name Role Phone aHrriet Ellis MD Primary Care Prov ider Reason for Visit * Reason Comments Return Visit Encounter Details Date Type Department Care Team (Late st Contact Info) Description 02/05/2023 3:15 PM EST Office Visit Gynecology/Obstetics [facility] [address] [place] [phone] Jessica Junior PA-C [address] [place] [address] Supervision of high-risk , third trimester*; History of abnormality in previous , currently ; History of IUFD; Anxiety disorder affecting , antepartum; Fundal height low for dates in third trimester Allergies Active Allergy Reactions [...] antepartum 2022 Supervision of high-risk , third [facility] 07/22/2022 Overview: Estimated Date of Delivery: 03/01/23 Continue vitamin. O positive. Rubella and varicella immune. Qnatal low risk. S/p anatomy ultrasound at [facility]. Passed 1 glucose test. S/p CBC - no anemia. Tdap vaccine completed on 12/11/2022. GBS culture at 36 weeks - obtained on 02/05/2023. Completed influenza vaccine. contraception: partner vasectomy. Desires [...] Plan: We met in conjunction with ALEXANDER Renyolds. We reviewed the range of outcomes with [...] money to get more. Patient refused 06/2022 Gabbs Depression Scale Answer Date Recorded Gabbs Depression Scale Total 2 12/11/2022 The thought [...] Sign Reading Time Taken Comments Blood Pressure 116/74 02/05/2023 3:24 PM EST Pulse - - Temperature - - Respiratory Rate - - Oxygen Saturation - - Inhaled Oxygen Concentration - - Weight 89.9 kg (198 lb 3.2 oz) 02/05/2023 3:24 P M EST Height - - Body Mass Index 31.99 07/22/2022 9:35 AM EDT documented in this [...] Progress Notes * Jessica Junior PA-C - 02/05/2023 3:26 PM EST Latesha Hernandez presents for visit at 36w4d. BP 116/74 | Wt 89.9 kg (198 lb 3.2 oz) | LMP 05/25/2022 (Approximate) | BMI 31.99 kg/m | BSA 2.05m Doing well. Denies vaginal bleeding, leaking of fluid, vaginal pressure, abdominal pain, or abnormal vaginal discharge. Denies blurry vision or right upper quadrant pain. Patient has intermittent headaches. Patient states she feels good movement. Patient has slightly more vaginal discharge. Patient denies vaginal burning, itching or odor. Patient reports that she has occasional jaden silverman contractions. Physical Exam General: alert and oriented, no acute distress Pulmonary: normal respiratory effort, no accessory muscle use. Abdomen: gravid, soft, non-tender heart rate: 140's bpm Fundal height: 34 cm Pelvic Exam: external genitalia and vagina anatomy within normal limits, GBS culture obtained today. Nitrazine negative. No pooling in the vagina on valsalva. Cervix visually closed. Office Equipment Technician Documentation Patient offered title curator and declined. OB [facility] Problems (from 07/17/22 to present) Problem Noted Resolved Supervision of high-risk , third trimester 07/22/2022 by Jessica Junior PA-C No Estimated Date of Delivery: 03/01/23 Continue vitamin. O positive. Rubella and varicella immune. Qnatal low risk. S/p anatomy ultrasound at [facility]. Passed 1 glucose test. S/p CBC - no anemia. Tdap vaccine completed on 12/11/2022. GBS culture at 36 weeks - obtained on 02/05/2023. Completed influenza vaccine. contraception: partner vasectomy. Desires [...] as well as suicidal or homicidal ideation. Plan: -GBS culture obtained today. -Growth ultrasound ordered. -O positive blood type. - contraception: partner vasectomy. -Desires to breastfeed. Counseled patient to call triage/go to labor and delivery if she has any vaginal bleeding, leaking of fluid, vaginal pressure, 6 or more painful contractions in an hour, abdominal pain, decreased movements, headaches, blurry vision, or right upper quadrant pain. Patient verbalized understanding. RTO in 1 week for return appointment or sooner if any concerns. Jessica Gu PA-C documented in this encounter Nursing Notes * Fatimah Guthrie RN - 02/05/2023 3:24 PM EST Routine OB check. Denies questions or complaints. documented in this encounter Plan of Treatment Upcoming Encounters Date Type Department Care Team (Late st Contact Info) Description 02/12/2023 8:45 AM EST Office Visit Gynecology/Obstetics [facility] [address] [place] [phone] Jessica Junior PA-C [address] [place] [address] 02/17/2023 8:45 AM EST Office Visit Gynecology/Obstetics [facility] [address] [place] [phone] Jessica Junior PA-C [address] [place] [address] 02/24/2023 3:45 PM EST Office Visit Gynecology/Obstetics [facility] [address] [place] [phone] Jessica Junior PA-C [address] [place] [address] 02/27/2023 1:30 PM EST Imaging Radiology, [facility] [address] [place] [phone] Health Maintenance Due Date Last Done Comments [...] Not on filedocumented as of this encounter Procedures Procedure Name Priority Date/Time Associated Diagnosis Comments GROUP B STREP CULTURE/PCR Routine 02/05/2023 3:50 PM EST Supervision of high-risk , third trimester documented in this encounter Results * US PREG FOLLOW-UP EACH FETUS (02/06/2023 2:13 PM EST) Anatomical Region Laterality Modality Pelvis, Body Ultrasound 02/06/2023 2:43 PM EST Impressions 02/06/2023 2:41 PM EST IMPRESSION 1. Growth within normal limits utilizing ELSIE from initial scan. 2. Normal TISHA 3. Vertex presentation. Narrative 02/06/2023 2:41 PM EST EXAM US PREG FOLLOW-UP EACH FETUS - 02/06/2023 2:13 pm HISTORY Fundal height low for dates. COMPARISON 07/21/2022 TECHNIQUE Sonographic examination performed. FINDINGS General : Walters Presentation: Vertex heart rate: 145 bpm TISHA: 10.1 cm which is between the 5th and 50th percentiles for this stage of . Placenta: Posterior Anatomy 4-chamber view: Seen Stomach: Seen Kidneys: Seen Bladder: Seen Biometry The previous study of 07/21/2022 estimated the date of delivery of 03/01/2023. Utilizing that date, current gestational age is 36 weeks 5 days. Biparietal diameter: 9.0 cm, 36w 2d Head circumference: 31.5 cm, 35w 2d Abdominal circumference: 30.8 cm, 34w 5d Femur length: 7.0 cm, 35w 5d Humeral length: 6.2 cm, 36w 0d HC/AC: 1.02, within normal limits EFW: 2622 g +/- 388 g which is the 19th percentile. Utilizing the date of delivery obtained from the initial scan, growth of the BPD, HC, AC, femur and humerus is within normal limits. Procedure Note Leon Tang MD - 02/06/2023 EXAM US PREG FOLLOW-UP EACH FETUS - 02/06/2023 2:13 pm HISTORY Fundal height low for dates. COMPARISON 07/21/2022 TECHNIQUE Sonographic examination performed. FINDINGS General : Walters Presentation: Vertex heart rate: 145 bpm TISHA: 10.1 cm which is between the 5th and 50th percentiles for this stageof . Placenta: Posterior Anatomy 4-chamber view: Seen Stomach: Seen Kidneys: Seen Bladder: Seen Biometry The previous study of 07/21/2022 estimated the date of delivery of03/01/2023. Utilizing that date, current gestational age is 36 weeks 5days. Biparietal diameter: 9.0 cm, 36w 2d Head circumference: 31.5 cm, 35w 2d Abdominal circumference: 30.8 cm, 34w 5d Femur length: 7.0 cm, 35w 5d Humeral length: 6.2 cm, 36w 0d HC/AC: 1.02, within normal limits EFW: 2622 g +/- 388 g which is the 19th percentile. Utilizing the date of delivery obtained from the initial scan, growth ofthe BPD, HC, AC, femur and humerus is within normal limits. IMPRESSION IMPRESSION 1. Growth within normal limits utilizing ELSIE from initial scan. 2. Normal TISHA 3. Vertex presentation. Jessica Davila PA-C RAD ULTRA SOUND * GROUP B STREP CULTURE/PCR (02/05/2023 3:50 PM EST) Group B Strep PCR Result Negative Negative 02/06/2023 9:20 PM EST LABORATORY [facility] [place] [facility] Comment: No Group B Streptococcus detected by culture-enhanced PCR (amplified probe). The collection of vaginal/rectal swab specimen combinations (FDA approved specimen type) is optimal for the detection of Group B Streptococcus. Single source collection (vaginal only or rectal only) or alternate specimen sources may lead to false negative results. Swab Rectum and vagina, CS / Unknown 02/05/2023 3:50 PM EST 02/05/2023 3:51 PM EST Jessica Davila PA-C LAB MICRO - GENERAL ORDERABLES LAB[facility]ATORY [facility] [address] [place] [address] documented in this encounter Visit Diagnoses Diagnosis Supervision of high-risk , third trimester- Primary History of abnormality in previous , currently with other poor obstetric history History of IUFD Anxiety disorder affecting , antepartum Fundal height low for dates in third trimester Fundal height low for dates in third [...] and were consensually agreed upon. Care Teams Dimensional Integration Engineer Relationship Specialty Start Date End Date Harriet Ellis MD [address] [place] [id number] PCP - General Family Medicine 05/12/18 documented as of this encounter"
--- OUTSIDE RECORDS SUMMARY | 2023-02-27 04:56 | External Medical Summary | Summary of Care ---
Author Name Unknown Organization [facility] Address [address] [place] [address] Phone [phone] Care Team Providers Care Training Director Name Role Phone Harriet Ellis MD Primary Care Prov ider Reason for Visit * Auth/Cert Specialty Diagnoses / Procedures Referred By Contac t Referred To Contact Diagnoses related condition, unspecified trimester Referral ID Status Reason Start Date Expiration Date Visits Re quested Visits Authorized [id number] Encounter Details Date Type Department Care Team (Latest Contact Info) Description 02/24/2023 5:24 PM EST - 02/24/2023 10:03 PM EST Hospital Encounter [id number] [facility], Women's Lower Level 1st Floor [address] [place] [address] Josafat Mello MD [address] [place], [place] [id number] Discharge Disposition: Home - Self Care Allergies Active Allergy Reactions Criticality Noted Date [...] Active Complete DHA 29-1-200 & 200 MG OralIndications:Nur pervision [...] antepartum 2022 Supervision of high-risk , third formerly [facility] 07/22/2022 Overview: Estimated Date of Delivery: [...] money to get more. Patient refused 06/2022 [place] Depression Scale Answer Date Recorded [place] Depression Scale Total 2 12/11/2022 The thought [...] Sign Reading Time Taken Comments Blood Pressure 112/70 02/24/2023 6:00 PM EST Pulse 130 02/24/2023 6:00 PM EST Temperature 37 C (98.6 F) 02/24/2023 6:00 PM EST Respiratory Rate 16 02/24/2023 6:00 PM EST Oxygen Saturation - - Inhaled Oxygen Concentration - - Weight - - Height - - Body Mass Index - - documented in this encounter Functional Status Functional [...] No 04/27/2020 documented as of this encounter Discharge Instructions * Discharge Instr - AVS* Angie Mayo DO - 02/24/2023 9:51 PM EST Discharge Date: 02/24/2023 You may call the department of Obstetrics and Gynecology during business hours for any questions ortest results. [facility] - [phone] After hours, you may call the number above and follow the prompts for more information on the next steps in your care. For acute concerns, you may also call the hospital directly and have the crown perforator operator page the [employer]ORTER [employer]UNDRY physician concrete buildings assembler. The information below provides you with the instructions and the list of medications you need to betaking following discharge from the hospital. If you have any questions, please ask before leaving.Please carry this letter with you when you see your doctor in the clinic. If you have questions, you can reach us at the numbers above. Chief Complaint You came to triage for fevers and elevated heart rate Diagnosis Your primary diagnosis at discharge was COVID-19 infection Treatment Your treatment included IV fluids, Tylenol, heart monitoring, bedside ultrasound, cervical exam Diet Normal diet Activity As tolerated Return Precautions Return to triage if you have painful contractions (greater than 6 to 8 per hour), severe abdominal pain, vaginal bleeding, leaking of fluid, or decreased movement (fewer than 10 movements in a 2 hour period). Special Instructions Induction of labor is scheduled for March 09, 2022 Paxlovid has been ordered to your pharmacy. If you decide you want to take the medication, please start the 5 day course by February 27, 2023 documented in this encounter Nursing Notes * Mary Phillips RN - 02/24/2023 5:56 PM EST Pt arrives to triage and states she arrived from [facility] for a "stress test, high heartrate, decreased movements and IV for fever". PT states she is feeling fetus move less than normal. Pt reports a headache, no vision changes, SOB, or RUQ pain. Pt reports back pain, no contractions or leakage of fluid. Pt placed on EFM at 1806. Dr. Martin made aware of pts arrival. documented in this encounter Plan of Treatment Upcoming Encounters Date Type Department Care Team (Late st Contact Info) Description 02/27/2023 1:30 PM EST Imaging Radiology, [address] [phone] 03/09/2023 9:14 PM EST - 03/09/2023 10:33 PM EST Surgery [facility], OB Triage, Women's Lower Level 1st Floor [address] [place] [address] Josafat Mello MD [address] [place], [place] [id number] INDUCTION FOR VAGINAL DELIVERY Scheduled Procedures Name Priority Associated Diagnoses Date/Ti me INDUCTION FOR VAGINAL DELIVERY 41 weeks gestation of 03/09/2023 9:14 PM EST Health Maintenance Due Date Last Done Comments Hepatitis B (1 of 3 - 3-dose series) 1995 Depression Screening 07/09/2019 07/08/2018 COVID-19 Vaccine (2022- season) 2022 01/06/2022, 01/31/2021, 05/09/2020, Additional history [...] Procedure Name Priority Date/Time Associated Diagnosis Comments RESPIRATORY PATHOGEN PANEL, PCR STAT 02/24/2023 7:08 PM EST documented in this encounter Results * (ABNORMAL) RESPIRATORY PATHOGEN PANEL, PCR (02/24/2023 7:08 PM EST) Adenovirus by PCR Negative Negative 023 9:31 PM EST LABORATORY [facility] Coronavirus 229E by PCR Negative Negative 02/24/2023 9:31 PM EST LAB[facility]ATORY [facility] Coronavirus HKU1 by PCR Negative Negative 02/24/2023 9:31 PM EST LAB[facility]ORY [facility] Coronavirus NL63 by PCR Negative Negative 02/24/2023 9:31 PM EST LAB[facility]ORY [facility] Coronavirus OC43 by PCR Negative Negative 02/24/2023 9:31 PM EST LAB[facility]ORY [facility] Coronavirus SARS-CoV-2 by PCR Positive(A) Negative 02/24/2023 9:31 PM EST LABORATORY [facility] Comment:Coronavirus SARS det ected by PCR (amplified probe). Test results reported to [facility]. Human Metapneumovirus by PCR Negative Negative 02/24/2023 9:31 PM EST LABORATORY [facility] Rhinovirus/Enterov irus by PCR Negative Negative 02/24/2023 9:31 PM EST LAB[facility]ORY [facility] Influenza A Virus by PCR Negative Negative 02/24/2023 9:31 PM EST LAB[facility]ORY [facility] Influenza B Virus by PCR Negative Negative 02/24/2023 9:31 PM EST LAB[facility]ORY [facility] Parainfluenza Virus 1 by PCR Negative Negative 02/24/2023 9:31 PM EST LAB[facility]ORY [facility] Parainfluenza Virus 2 by PCR Negative Negative 02/24/2023 9:31 PM EST LAB[facility]ORY [facility] Parainfluenza Virus 3 by PCR Negative Negative 02/24/2023 9:31 PM EST LAB[facility]ORY [facility] Parainfluenza Virus 4 by PCR Negative Negative 02/24/2023 9:31 PM EST LAB[facility]ORY [facility] Respiratory Syncytial Virus by PCR Negative Negative 02/24/2023 9:31 PM EST LAB[facility]ORY [facility] Bordetella pertussis by PCR Negative Negative 02/24/2023 9:31 PM EST LAB[facility]ORY [facility] Chlamydia pneumoniae by PCR Negative Negative 02/24/2023 9:31 PM EST LAB[facility]ORY [facility] Mycoplasma pneumoniae by PCR Negative Negative 02/24/2023 9:31 PM EST LAB[facility]ORY [facility] Bordetella parapertussis by PCR Negative Negative 02/24/2023 9:31 PM EST LABORATORY [facility] Comment: The primers that detect Rhinovirus may cross react with some Enterorviruses. The validation of bronchial specimens, tracheal aspirates, and throats for this assay was developed and performance characteristics determined by [employer]. The validation of alternate specimen types has not been cleared or approved by the U.S. Food and Drug Administration (FDA). It has been determined that such clearance or approval is not necessary. Upper Respiratory Mid-turbinate nasal swab / Unknown Non-blood Collection / Unknown 02/24/2023 7:08 PM EST 02/24/2023 7:19 PM EST Angie Mayo DO LAB MICRO - [place] [address] documented in this encounter Administered Medications Inactive Administered Medications - up to 3 most recent administrations Medication Order MAR Action Action Date Dose Rate Site Acetaminophen (Tylenol) tab 975 mg 975 mg, Oral, Q6H PRN Fever >38C(100.5F), Starting on Thu02/24/23 at 1823, Until Thu02/25/23 at 0203, Maximum of 4 grams (4000 mg) per day. Given 02/24/2023 9:43 PM EST 975 mg isolyte 1,000 mL bolus infusion Intravenous, Administer entire volume within 60 minutes or less. Plasma-LYTE 148, isolyte-S, and isolyte-S pH 7.4 are considered equivalent - including for MAR barcode scanning., ONCE, 1 dose, On Thu02/24/23 at 1900 New Bag 02/24/2023 7:00 PM EST 1,000 mL 500 mL/hr isolyte-S pH 7.4 infusion Intravenous, at 135 mL/hr, Plasma-LYTE 148, isolyte-S, and isolyte-S pH 7.4 are considered equivalent - including for MAR barcode scanning., CONTINUOUS, Starting on Thu02/24/23 at 2014, Until Thu02/25/23 at 020 New Bag 02/24/2023 8:15 PM EST 135 mL/hr documented in this encounter Active and Recently Administered Medications Times are shown in EST. Scheduled Medication Order 02/22/2023 02/23/2023 02/24/2023 isolyte 1,000 mL bolus infusion (COMPLETED) Intravenous, Administer entire volume within 60 minutes or less. Plasma-LYTE 148, isolyte-S, and isolyte-S pH 7.4 are considered equivalent - including for MAR barcode scanning., ONCE, 1 dose, On Thu02/24/23 at 1900 1900 (New Bag - Prov ider: Rigoberto Hutson RN) Continuous Medication Order 02/22/2023 02/23/2023 02/24/2023 isolyte-S pH 7.4 infusion Intravenous, at 135 mL/hr, Plasma-LYTE 148, isolyte-S, and isolyte-S pH 7.4 are considered equivalent - including for MAR barcode scanning., CONTINUOUS, Starting on Thu02/24/23 at 2014, Until Thu02/25/23 at 202 2014 (New Bag - Prov ider: Rigoberto Hutson RN) PRN Medication Order 02/22/2023 02/23/2023 02/24/2023 Acetaminophen (Tylenol) tab 975 mg 975 mg, Oral, Q6H PRN Fever >38C(100.5F), Starting on Thu02/24/23 at 1823, Until Thu02/25/23 at 020, Maximum of 4 grams (4000 mg) per day. 2142 (Given - Provid er: Rigoberto Hutson RN) documented in this encounter Additional Health Concerns [...] and were consensually agreed upon. Care Teams Training Director Relationship Specialty Start Date End Date Harriet Ellis MD [address] [place] [id number] PCP - General Family Medicine 05/12/18 documented as of this encounter
--- OUTSIDE RECORDS SUMMARY | 2023-02-27 04:56 | External Medical Summary | Summary of Care ---
Author Name Unknown Organization [facility] Address [address] [place] [address] Phone [phone] Care Team Providers Care Motorsports Technician Name Role Phone Harriet Ellis MD Primary Care Prov ider Encounter Details Date Type Department Care Team (Late st Contact Info) Description 02/25/2023 Telephone Gynecology/Obstetics [place] [address] [place] [address] Jessica Junior PA-C [address] [place] [address] Allergies Active Allergy Reactions Criticality Noted Date Comments Pollen Other (Please comment) 03/06/2016 documented as of this encounter (statuses as of 02/26/2023) Medications Medication Sig Dispensed Refills Start Date [...] as of this encounter (statuses as of 02/26/2023) Active Problems Problem Noted Date Diagnosed Date [...] as of this encounter (statuses as of 02/26/2023) Resolved Problems Problem Noted Date Diagnosed Date Resolved Date Abnormal uterine bleeding (AUB) 08/29/2020 07/23/2022 Vaginal delivery 04/29/2020 06/08/2020 Vaginal discharge 03/26/2020 04/24/2020 21 weeks gestation of 12/23/2019 01/24/2020 Encounter for scre ening for chromosomal anomalies 10/25/2019 12/23/2019 Moderate vaginal bleeding 05/11/2019 Other specified re lated conditions, unspecified trimester 04/09/2019 07/23/2022 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 We reviewed the range of outcomes with [...] as of this encounter (statuses as of 02/26/2023) Immunizations Name Administration Dates Next Due COVID-19 [...] money to get more. Patient refused 06/2022 [place] Depression Scale Answer Date Recorded [place] Depression Scale Total 2 12/11/2022 The thought [...] encounter Miscellaneous Notes * Telephone Encounter - Chyna Abbott LPN - 02/26/2023 10:56 AM EST Patient scheduled * Telephone Encounter - Jessica Junior PA-C - 02/25/2023 12:10 AM EST Please get patient scheduled for return appointment in 1 week from 02/24/2023. Thank you. documented in this encounter Plan of Treatment Upcoming Encounters Date Type Department Care Team (Late st Contact Info) Description 02/27/2023 1:30 PM EST Imaging Radiology, [address] [address] 03/03/2023 10:30 AM EST Office Visit Gynecology/Obstetics [address] [phone] Jessica Junior PA-C [address] [place] [address] 03/09/2023 9:14 PM EST - 03/09/2023 10:33 PM EST Surgery [facility], OB Triage, Women's Lower Level 1st Floor [address] [place], [place] [phone] Josafat Mello MD [address] [place], [place] [phone] INDUCTION FOR VAGINAL DELIVERY Scheduled Procedures Name [...] and were consensually agreed upon. Care Teams Motorsports Technician Relationship Specialty Start Date End Date Harriet Ellis MD [address] [place] [address] PCP - General Family Medicine 05/12/18 documented as of this encounter
--- OUTSIDE RECORDS SUMMARY | 2023-02-27 04:56 | External Medical Summary | Summary of Care ---
Author Name Unknown Organization [facility] Address [address] [place] [address] Phone [phone] Care Team Providers Care Hotel Operations Manager Name Role Phone Harriet Ellis MD Primary Care Prov ider Reason for Visit * Reason Comments Return Visit Encounter Details Date Type Department Care Team (Late st Contact Info) Description 02/12/2023 8:45 AM EST Office Visit Gynecology/Obstetics [place] [address] [place] [address] Jessica Junior PA-C [address] [place] [address] Supervision of high-risk , third trimester*; History of abnormality in previous , currently ; History of IUFD; Anxiety disorder affecting , antepartum Allergies Active Allergy Reactions Criticality Noted Date Comments Pollen Other (Please comment) 03/06/2016 documented as of this encounter (statuses as of 02/12/2023) Medications Medication Sig Dispensed Refills Start Date End Date Status Docusate Sodium 100 MG Oral Capsule (Colace)Indications: Constipation during , antepartum Take 1 Capsule by mouth daily as needed for Constipation. 30 Capsule 2 07/22/2022 Active Complete Susy DHA 29-1-200 & 200 MG OralIndications:Supe rvision of high-risk , unspecified trimester Take one tablet and one capsule by mouth daily as directed on the package. 60 Each 12 07/22/2022 Active documented as of this encounter (statuses as of 02/12/2023) Active Problems Problem Noted Date Diagnosed Date [...] as of this encounter (statuses as of 02/12/2023) Resolved Problems Problem Noted Date Diagnosed Date [...] as of this encounter (statuses as of 02/12/2023) Immunizations Name Administration Dates Next Due COVID-19 [...] money to get more. Patient refused 06/2022 [place] Depression Scale Answer Date Recorded [place] Depression Scale Total 2 12/11/2022 The thought [...] Sign Reading Time Taken Comments Blood Pressure 114/68 02/12/2023 8:49 AM EST Pulse - - Temperature - - Respiratory Rate - - Oxygen Saturation - - Inhaled Oxygen Concentration - - Weight 91.2 kg (201 lb 1.6 oz) 02/12/2023 8:49 A M EST Height - - Body Mass Index 32.46 07/22/2022 9:35 AM EDT documented in this [...] Progress Notes * Jessica Junior PA-C - 02/12/2023 8:49 AM EST Latesha Hernandez presents for visit at 37w3d. BP 114/68 | Wt 91.2 kg (201 lb 1.6 oz) | LMP 05/25/2022 (Approximate) | BMI 32.46 kg/m | BSA 2.06m Doing well. Denies vaginal bleeding, leaking of fluid, vaginal pressure, contractions, abdominal pain, or abnormal vaginal discharge. Denies headaches, blurry vision, or right upper quadrant pain. Patient states she feels good movement. Physical Exam General: alert and oriented, no acute distress Pulmonary: normal respiratory effort, no accessory muscle use. Abdomen: gravid, soft, non-tender heart rate: 140's bpm Fundal height: 36 cm OB [place] Problems (from 07/17/22 to present) Problem Noted [...] suicidal or homicidal ideation. Plan: -GBS culture negative. -Has follow up growth ultrasound scheduled. -O positive blood type. -Discussed elective induction at 39 weeks due to past history - patient declines. Patient would like to watch and wait. Counseled patient that we would induction by 41 weeks. -Advised patient to contact the office with any concerns. [facility] [place] [facility] [place]. Advised patient to contact the office immediately if she has any decrease in baby's movements or if she is not getting appropriate movement counts. Offered non stress testtoday to check on baby - patient declines. Patient will call with any concerns. Counseled patient to call triage/go to labor [...] documented in this encounter Nursing Notes * Chyna Abbott LPN - 02/12/2023 8:48 AM EST Routine OB check. Denies questions or complaints. documented in this encounter Plan of Treatment Upcoming Encounters Date Type Department Care Team (Late st Contact Info) Description 02/17/2023 8:45 AM EST Office Visit Gynecology/Obstetics [place] [address] [place] [phone] Jessica Junior PA-C [address] [place] [address] 02/24/2023 3:45 PM EST Office Visit Gynecology/Obstetics [place] [address] [place] [phone] Jessica Junior PA-C [address] [place] [address] 02/27/2023 1:30 PM EST Imaging Radiology, [place] [address] [place] [phone] Health Maintenance Due Date Last Done Comments [...] of IUFD Anxiety disorder affecting , antepartum documented in this encounter Advance Directives Latest [...] and were consensually agreed upon. Care Teams Hotel Operations Manager Relationship Specialty Start Date End Date Harriet Ellis MD [address] [place] [address] PCP - General Family Medicine 05/12/18 documented as of this encounter"
--- OUTSIDE RECORDS SUMMARY | 2023-02-27 04:56 | External Medical Summary | Summary of Care ---
Author Name Unknown Organization [facility] Address [address] [facility] [address] Phone [phone] Care Team Providers Care Actuary Clerk Name Role Phone Harriet Ellis MD Primary Care Prov ider Reason for Visit * Reason Comments Return Visit Encounter Details Date Type Department Care Team (Late st Contact Info) Description 02/17/2023 8:45 AM EST Office Visit Gynecology/Obstetics [place] [address] [place] [phone] Jessica Junior PA-C [address] [place] [address] Supervision of high-risk , third trimester*; History of abnormality in previous , currently ; History of IUFD Allergies Active Allergy Reactions Criticality Noted Date Comments Pollen Other (Please comment) 03/06/2016 documented as of this encounter (statuses as of 02/20/2023) Medications Medication Sig Dispensed Refills Start Date [...] as of this encounter (statuses as of 02/20/2023) Active Problems Problem Noted Date Diagnosed Date Echogenic intracardiac focus of fetus on ultrasound 10/06/2022 Last Assessment & Plan: This is a variant of normal and is not expected to resolve during . No further ultrasound follow-up indicated. Constipation during , antepartum 2022 Supervision of high-risk , [facility] 07/22/2022 Overview: Estimated Date of Delivery: [...] as of this encounter (statuses as of 02/20/2023) Resolved Problems Problem Noted Date Diagnosed Date [...] as of this encounter (statuses as of 02/20/2023) Immunizations Name Administration Dates Next Due COVID-19 [...] money to get more. Patient refused 06/2022 [place] Depression Scale Answer Date Recorded [place] Depression Scale Total 2 12/11/2022 The thought [...] Sign Reading Time Taken Comments Blood Pressure 116/64 02/17/2023 8:47 AM EST Pulse - - Temperature - - Respiratory Rate - - Oxygen Saturation - - Inhaled Oxygen Concentration - - Weight 91.6 kg (202 lb) 02/17/2023 8:47 AM EST Height - - Body Mass Index 32.6 07/22/2022 9:35 AM EDT documented in this [...] Progress Notes * Jessica Junior PA-C - 02/17/2023 8:54 AM EST Latesha Hernandez presents for visit at 38w2d. BP 116/64 | Wt 91.6 kg (202 lb) | LMP 05/25/2022 (Approximate) | BMI 32.60 kg/m | BSA 2.07 m Doing well. Denies vaginal bleeding, leaking of fluid, abdominal pain, or abnormal vaginal discharge. Denies headaches, blurry vision, or right upper quadrant pain. Patient states she feels good movement. Patient had some irregular contractions for a few hours on Thursday. Patient desires cervical check. Patient reports some leg cramping that is resolving now. Physical Exam General: alert and oriented, no acute distress Pulmonary: normal respiratory effort, no accessory muscle use. Abdomen: gravid, soft, non-tender heart rate: 140's bpm Fundal height: 38 cm Pelvic Exam: external genitalia and vagina anatomy within normal limits Cervix: 1cm/30%/high System Programmer Documentation Patient offered adhesive bandage machine operator and declined. OB [place] Problems (from 07/17/22 to present) Problem Noted Resolved Constipation during , antepartum 07/22/2022 by Jessica Junior PA-C No Supervision of high-risk , third trimester 07/22/2022 [...] in previous , currently 10/25/2019 by Melania Wlals MD No History of trisomy 22 with [...] or homicidal ideation. Plan: -GBS culture negative. -Repeat growth ultrasound ordered per Dr. Montelongo. No need for induction of labor until 41 weeks perDr. Montelongo unless patient desires. Patient declines induction until 41 weeks. -Patient reports that mood is stable. - contraception: partner vasectomy. -Desires to breastfeed. [...] Nursing Notes * Chyna Abbott LPN - 02/17/2023 8:46 AM EST Routine OB check. Denies questions or complaints. documented in this encounter Plan of Treatment Upcoming Encounters Date Type Department Care Team (Late st Contact Info) Description 02/24/2023 3:45 PM EST Office Visit Gynecology/Obstetics [address] [phone] Jessica Junior PA-C [address] [place] [address] 02/27/2023 1:30 PM EST Imaging Radiology, [address] [phone] Health Maintenance Due Date Last Done Comments Hepatitis B (1 of 3 - 3-dose series) 1995 Depression Screening 07/09/2019 07/08/2018 COVID-19 Vaccine ( - 2022- season) 2022 01/06/2022, 01/31/2021, 05/09/2020, Additional history [...] other poor obstetric history History of IUFD documented in this encounter Advance Directives Latest [...] and were consensually agreed upon. Care Teams Actuary Clerk Relationship Specialty Start Date End Date Harriet Ellis MD [address] [place] [address] [place] [address] PCP - General Family Medicine 05/12/18 documented as of this encounter"
--- OUTSIDE RECORDS SUMMARY | 2023-02-27 04:57 | External Medical Summary | Summary of Care ---
Author Name Unknown Organization [facility] Address [address] [place] [address] Phone [phone] Care Team Providers Care Communication Consultant Name Role Phone Harriet Ellis MD Primary Care Prov ider Encounter Details Date Type Department Care Team Description 12/16/2022 Telephone Gynecology/Obstetics [place] [address] [place] [address] Gareth Montelongo MD [address] [place] [address] Allergies Active Allergy Reactions Severity Noted Date Comments Pollen Other (Please comment) 03/06/2016 documented as of this encounter (statuses as of 12/18/2022) Medications Medication Sig Dispensed Refills Start Date [...] as of this encounter (statuses as of 12/18/2022) Active Problems Problem Noted Date Echogenic intracardiac focus of fetus on ultrasound 10/06/2022 Last Assessment & Plan: This is a variant of normal and is not expected to resolve during . No further ultrasound follow-up indicated. Constipation during , antepartu m 07/22/2022 Supervision of high-risk , thir d trimester 07/22/2022 Overview: Estimated Date of Delivery: 03/01/23 Continue vitamin. O positive. Rubella and varicella immune. Qnatal low risk. S/p anatomy ultrasound at [facility]. Doing lab work on 12/11/2022: CBC, type and screen, RPR and one hour glucose test. Tdap vaccine completed on 12/11/2022. GBS culture [...] were seen today. Anxiety disorder affecting , an tepartum 11/29/2018 Overview: Patient reports situational anxiety in [...] services as clinically indicated. Depression complicating , antep artum 11/29/2018 Last Assessment & Plan: DISCUSSION: 1. Discussed [...] the patient desires. 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 Supervision of high-risk , unspecified trimester 11/29/2018 06/08/2020 Thrombocytosis 11/29/2018 02/14/2020 [...] normal at 371,000. Abnormal quad screen 11/24/2018 05/06/2019 Encounter for supervision of high risk in second trimester, antepartum 11/24/2018 05/06/2019 Anxiety in in second trimester, antepa rtum 11/15/2018 05/06/2019 Reactive airway disease in pediatric patient 05/201709/23/2017 Encounter for supervision of normal first in third trimester 05/28/2016 01/26/2017 Encounter for supervision of normal first in first trimester 03/06/2016 08/20/2016 documented as of this encounter (statuses as of 12/18/2022) Immunizations Name Administration Dates Next Due COVID-19 [...] 0.6 oz pur e alcohol) Denies in Education Answer Date Recorded What is the highest level of school you have completed or the highest degree you have received? Bachelor's degree (e.g., BA, AB, BS) 11/29/2018 Estimated Date of Delivery Comme nts Yes 03/01/2023 Based on Ultraso und Sex Assigned at Date Recorded Not on file Job Start Date Occupation [...] or making decisions? (5 years old or older No 04/27/2020 documented as of this encounter Miscellaneous Notes * Telephone Encounter - CLAUDIA Lanza - 12/18/2022 10:03 AM EDT Completed to the best of my ability and scanned back to Jacki. * Telephone Encounter - CHARITY Turner - 12/16/2022 3:01 PM EDT Fmla forms sent to [facility] for completion documented in this encounter Plan of Treatment Upcoming Encounters Date Type Specialty Care Team Description 12/23/2022 Office Visit Gynecology Obstetrics Jessica Junior PA-C 68 [facility] [place] [address] 01/06/2023 Office Visit Gynecology Obstetrics Jessica Junior PA-C 68 [facility] [place] [address] 01/20/2023 Office Visit Gynecology Obstetrics Jessica Junior PA-C [address] [place] [address] Health Maintenance Due Date Last Done Comments Hepatitis B (1 of 3 - 3-dose series) 1995 Depression Screening 07/09/2019 07/08/2018 COVID-19 Vaccine ( - 2022- season) 2022 01/06/2022, 01/31/2021, 05/09/2020, Additional history exists Pap Smear 02/12/2025 02/12/2022, 03/03, 08/18/2014, Additional [...] Not on filedocumented as of this encounter Advance Directives Latest [...] and were consensually agreed upon. Care Teams Communication Consultant Relationship Specialty Start Date End Date Harriet Ellis MD [address] [place] [id number] PCP - General Family Medicine 05/12/18 documented as of this encounter
--- OUTSIDE RECORDS SUMMARY | 2023-02-27 04:57 | External Medical Summary | Summary of Care ---
Author Name Unknown Organization [facility] Address [address] [place] [address] Phone [phone] Care Team Providers Care Form Raiser Name Role Phone Harriet Ellis MD Primary Care Prov ider Reason for Visit * Reason Onset Date Comments Advice 12/14/2022 Encounter Details Date Type Department Care Team Description 12/14/2022 Telephone Gynecology/Obstetics [place] [address] [place] [address] Jessica Junior PA-C [address] [place] [address] Advice Allergies Active Allergy Reactions Severity Noted Date Comments Pollen Other (Please comment) 03/06/2016 documented as of this encounter (statuses as of 12/20/2022) Medications Medication Sig Dispensed Refills Start Date [...] as of this encounter (statuses as of 12/20/2022) Active Problems Problem Noted Date Echogenic intracardiac [...] as of this encounter (statuses as of 12/20/2022) Resolved Problems Problem Noted Date Resolved Date [...] as of this encounter (statuses as of 12/20/2022) Immunizations Name Administration Dates Next Due COVID-19 [...] encounter Miscellaneous Notes * Telephone Encounter - Jessica Davila PA-C - 12/16/2022 6:22 PM EDT Please get patient scheduled for third trimester growth scan per Dr. Aguilera (see his message). Thank you. * Telephone Encounter - Jessica Davila PA-C - 12/15/2022 8:12 AM EDT Patient is asking about the echogenic intracardiac focus and not about growth. Patient would like to follow up on the echogenic intracardiac focus. Thank you. * Telephone Encounter - YULISA Goodwin - 12/15/2022 7:55 AM EDT It does not appear follow up growths or NSTs are necessary however, I will route to Dr. Aguilera for review since he last saw Ms. Hernandez on 10/06/22 YULISA Goodwin 12/15/2022 7:56 AM * Telephone Encounter - Jessica Davila PA-C - 12/14/2022 8:15 PM EDT Patient is asking for 3rd trimester ultrasound to follow up on echogenic intracardiac focus seen onanatomy ultrasound. Patient is asking for this due to history of trisomy 22 and IUFD with prior . Please advise and get ultrasound scheduled for patient if okay. Thank you. documented in this encounter Plan of Treatment Upcoming Encounters Date Type Specialty Care Team Description 12/23/2022 Office Visit Gynecology Obstetrics Jessica Junior PA-C [address] [place] [address] 01/06/2023 Office Visit Gynecology Obstetrics Jessica Junior PA-C [address] [place] [address] 01/20/2023 Office Visit Gynecology Obstetrics Jessica Junior PA-C 68 [facility] [address] Health Maintenance Due Date Last Done Comments [...] and were consensually agreed upon. Care Teams Form Raiser Relationship Specialty Start Date End Date Harriet Ellis MD [address] [place] [address] PCP - General Family Medicine 05/12/18 documented as of this encounter
--- OUTSIDE RECORDS SUMMARY | 2023-02-27 04:57 | External Medical Summary | Summary of Care ---
Author Name Unknown Organization [facility] Address [address] [place] [address] Phone [phone] Care Team Providers Care Electrician Name Role Phone Harriet Ellis MD Primary Care Prov ider Reason for Visit * Reason Onset Date Comments Advice 12/14/2022 Encounter Details Date Type Department Care Team Description 12/14/2022 Telephone Gynecology/Obstetics [place] [address] [place] [address] Jessica Junior PA-C [address] [place] [address] Advice Allergies Active Allergy Reactions [...] encounter Miscellaneous Notes * Telephone Encounter - YULISA Goodwin - 12/15/2022 7:59 AM EDT Per the MFM consult note on 07/23/22: History of IUFD - Primary CONSIDERATIONS: The cause of a demise/stillbirth remains unidentified in almost 50% of cases, despite all evaluative efforts. 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 RECOMMENDATIONS: Growth ultrasounds and surveillance likely not needed unless another clinical indication arises. However, I did route your previous message to us regarding Ms. Hernandez to Dr. Aguilera for review since he say her last on 10/06/22 YULISA Goodwin 12/15/2022 8:00 AM * Telephone Encounter - Jessica Davila PA-C - 12/14/2022 8:18 PM EDT Does patient need any monitoring (NSTs) due to history of trisomy 22/IUFD? The consultation note does not state anything specific. Thank you. documented in this encounter Plan of Treatment Upcoming Encounters Date Type Specialty Care Team Description 12/23/2022 Office Visit Gynecology Obstetrics Jessica Junior PA-C [address] [place] [address] 01/06/2023 Office Visit Gynecology Obstetrics Jessica Junior PA-C [address] [place], [place] [phone] 01/20/2023 Office Visit Gynecology Obstetrics Jessica Junior PA-C [address] [place] [address] Health Maintenance Due Date Last Done Comments [...] and were consensually agreed upon. Care Teams Electrician Relationship Specialty Start Date End Date Harriet Ellis MD [address] [place] [address] PCP - General Family Medicine 05/12/18 documented as of this encounter
--- OUTSIDE RECORDS SUMMARY | 2023-02-27 04:57 | External Medical Summary | Summary of Care ---
Author Name Unknown Organization [facility] Address [address] [place] [address] Phone [phone] Care Team Providers Care Fiscal Services Director Name Role Phone Harriet Ellis MD Primary Care Prov ider Encounter Details Date Type Department Care Team Description 12/16/2022 Telephone Gynecology/Obstetics [place] [address] [place] [address] Gareth Montelongo MD [address] [place] [address] Allergies Active Allergy Reactions Severity Noted Date Comments Pollen Other (Please comment) 03/06/2016 documented as of this encounter (statuses as of 12/19/2022) Medications Medication Sig Dispensed Refills Start Date [...] as of this encounter (statuses as of 12/19/2022) Active Problems Problem Noted Date Echogenic intracardiac [...] as of this encounter (statuses as of 12/19/2022) Resolved Problems Problem Noted Date Resolved Date [...] as of this encounter (statuses as of 12/19/2022) Immunizations Name Administration Dates Next Due COVID-19 [...] encounter Miscellaneous Notes * Telephone Encounter - CHARITY Turner - 12/19/2022 9:20 AM EDT FMLA forms signed by provider- faxed with confirmation and scanned into chart * Telephone Encounter - CLAUDIA Lanza - [...] Office Visit Gynecology Obstetrics Jessica Junior PA-C [address] [place] [address] 01/06/2023 Office Visit Gynecology Obstetrics Jessica Junior PA-C [address] [place] [address] 01/20/2023 Office Visit Gynecology Obstetrics Jessica Junior PA-C [address] [place] [address] Health Maintenance Due Date Last Done Comments [...] and were consensually agreed upon. Care Teams Fiscal Services Director Relationship Specialty Start Date End Date Harriet Ellis MD [address] [place] [id number] PCP - General Family Medicine 05/12/18 documented as of this encounter
--- OUTSIDE RECORDS SUMMARY | 2023-02-27 04:57 | External Medical Summary ---
Author Name Unknown Address Unknown Organization K01:[facility] - [facility] [address] [facility] [facility] [address] [facility] [address] [facility] [address] Laboratory Report Ordering Provider Test Date Status CODY LOPEZ 02/05/2023 15:50:53 Final Observation Date Value Abnormality Reference (Units ) Status Streptococcus agalactiae DNA [Presence] in Specimen by ZEKE with probe detection 02/05/2023 15:50:53 Negative Negative Final No Group B Streptococcus det ected by culture-enhanced PCR (amplified probe).
The collection of vaginal/rectal swab specimen combinations (FDA approved specimen type) is optimal for the detection of Group B Streptococcus. Single source collection (vaginal only or rectal only) or alternate specimen sources may lead to false negative results. Performing Location [facility] - [address] [facility] [place] [address]
--- OUTSIDE RECORDS SUMMARY | 2023-02-27 04:57 | External Medical Summary | Summary of Care ---
Author Name Unknown Organization [facility] Address [address] [place] [address] Phone [phone] Care Team Providers Care Denture Contour Wire Specialist Name Role Phone Harriet Ellis MD Primary Care Prov ider Encounter Details Date Type Department Care Team Description 12/17/2022 Office Visit Insurance Analyst Obstetrics [facility], [address] [phone] Lor Roach, DO [address] [place], [place] [phone] Echogenic intracardiac focus of fetus on ultrasound*; Ultrasound for screening for growth restriction; 29 weeks gestation of Allergies Active Allergy Reactions Severity Noted Date Comments Pollen Other (Please comment) 03/06/2016 documented as of this encounter (statuses as of 12/17/2022) Medications Medication Sig Dispensed Refills Start Date [...] as of this encounter (statuses as of 12/17/2022) Active Problems Problem Noted Date Echogenic intracardiac [...] as of this encounter (statuses as of 12/17/2022) Resolved Problems Problem Noted Date Resolved Date [...] as of this encounter (statuses as of 12/17/2022) Immunizations Name Administration Dates Next Due COVID-19 [...] as of this encounter Progress Notes * Lor Benton DO - 12/17/2022 4:17 PM EDT Latesha presented today at 29w3d for an ultrasound for the following indications: Echogenic intracardiac focus of fetus on ultrasound Assessment & Plan: This is a variant of normal and is not expected to resolve during . No further ultrasound follow-up indicated. Ultrasound for screening for growth restriction 29 weeks gestation of Ultrasound summary: Patient presented at 29w 3d for growth assessment. Normal growth with EFW 1385 g at 36%ile. Normal TISHA at 16.1 cm. Cephalic presentation. LVEF as seen on prior exam. I reviewed the ultrasound images. Latesha was given the opportunity to meet with me if she had any questions. Please refer to the ultrasound report for additional details about today's ultrasound examination. RECOMMENDATIONS: Follow up with MFM for ultrasound as clinically indicated. See prior formal MFM consultation note. Thank you for allowing us to participate in the care of this patient. Please call with any questions. Lor Roach DO 12/17/2022 4:17 PM documented in this encounter Miscellaneous Notes * Assessment & Plan Note - Lor Benton DO - 12/17/2022 4:17 PM EDT Associated Problem(s): Echogenic intracardiac focus of fetus on ultrasound This is a variant of normal and is not expected to resolve during . No further ultrasound follow-up indicated. documented in this encounter Plan of Treatment Upcoming Encounters Date Type Specialty Care Team Description 12/23/2022 Office Visit Gynecology Obstetrics Jessica Junior PA-C [address] [place] [address] 01/06/2023 Office Visit Gynecology Obstetrics Jessica Junior PA-C 68 [place] [address] 01/20/2023 Office Visit Gynecology Obstetrics Jessica Junior PA-C [address] [place] [address] Health Maintenance Due Date Last Done Comments [...] as of this encounter Visit Diagnoses Diagnosis Echogenic intracardiac focus of fetus on ultrasound- Primary Abnormal findings on screening Ultrasound for screening for growth restriction screening for growth retardation using ultrasonics 29 weeks gestation of state, incidental documented in this encounter Advance Directives Latest Code Status on File Code Status Date Activated Date Inactivated Comments Full Code 04/27/2020 8:12 PM 04/29/2020 3:46 PM This order reflects the patients wishes and were consensually agreed upon. Code Status History Code Status Date Activated Date Inactivated Comments Full Code 04/08/2019 6:13 PM 04/09/2019 8:15 PM This o rder reflects the patients wishes and were consensually agreed upon. Care Teams Denture Contour Wire Specialist Relationship Specialty Start Date End Date Harriet Ellis MD [address] [place] [id number] PCP - General Family Medicine 05/12/18 documented as of this encounter
--- OUTSIDE RECORDS SUMMARY | 2023-02-27 04:57 | External Medical Summary | Summary of Care ---
Author Name Unknown Organization [facility] Address [address] [place] [address] Phone [phone] Care Team Providers Care Crop Insurance Claims Adjuster Name Role Phone Harriet Ellis MD Primary Care Prov ider Reason for Visit * Reason Comments Return Visit Encounter Details Date Type Department Care Team Description 12/11/2022 Office Visit Gynecology/Obstetics [place] [address] [place] [address] Jessica Junior PA-C [address] [place] [address] Supervision of high-risk , third trimester*; History of abnormality in previous , currently ; History of IUFD; Anxiety disorder affecting , antepartum; Depression complicating , antepartum; Echogenic intracardiac focus of fetus on ultrasound; Need for prophylactic vaccination with combined jjzssbkbpo-dcxufac-prr tussis (DTP) vaccine Allergies Active Allergy Reactions Severity Noted Date Comments Pollen Other (Please comment) 03/06/2016 documented as of this encounter (statuses as of 12/14/2022) Medications Medication Sig Dispensed Refills Start Date [...] as directed on the package. 60 Each 07/22/2022 Active documented as of this encounter (statuses as of 12/14/2022) Active Problems Problem Noted Date Echogenic intracardiac focus of fetus on ultrasound 10/06/2022 Last Assessment & Plan: Reviewed that today's ultrasound notes an echogenic intracardiac focus (EIF). Explained that in a woman who is at low risk for aneuploidy (age less than 35, normal genetic screening), with an otherwise normal ultrasound, echogenic intracardiac focus (EIF) is generally considered a normal variant of and no further work-up is recommended. Explained that an echogenic intracardiac focus (EIF) has no impact on cardiac function. Constipation during , antepartu m 07/22/2022 Supervision [...] as of this encounter (statuses as of 12/14/2022) Resolved Problems Problem Noted Date Resolved Date [...] We met in conjunction with Madelin Camacho [facility]. We reviewed the range of outcomes with [...] as of this encounter (statuses as of 12/14/2022) Immunizations Name Administration Dates Next Due COVID-19 [...] Sign Reading Time Taken Comments Blood Pressure 118/64 12/11/2022 3:08 PM EDT Pulse - - Temperature - - Respiratory Rate - - Oxygen Saturation - - Inhaled Oxygen Concentration - - Weight 84.1 kg (185 lb 8 oz) 12/11/2022 3:08 PM EDT Height - - Body Mass Index 29.94 07/22/2022 9:35 AM EDT documented in this [...] of this encounter Progress Notes * Jessica Davila PA-C - 12/11/2022 3:10 PM EDT Latesha Hernandez presents for visit at 28w4d. BP 118/64 | Wt 84.1 kg (185 lb 8 oz) | LMP 05/25/2022 (Approximate) | BMI 29.94 kg/m | BSA 1.98 m Doing well. Denies vaginal bleeding, leaking of fluid, vaginal pressure, contractions, abdominal pain, or abnormal vaginal discharge. Denies headaches, blurry vision, or right upper quadrant pain. Patient states she feels good movement. Patient reports mood is stable. Patient denies concerns with constipation. Physical Exam General: alert and oriented, no acute distress Pulmonary: normal respiratory effort, no accessory muscle use. Abdomen: gravid, soft, non-tender heart rate: 130's bpm Fundal height: 28 cm OB [place] Problems (from 07/17/22 to present) Problem Noted Resolved Supervision of high-risk , third trimester 07/22/2022 by Jessica Davila PA-C No Estimated Date of Delivery: 03/01/23 [...] Anxiety disorder affecting , antepartum 11/29/2018 by YULISA Lala No Patient reports situational anxiety in , but states that she is managing well without treatment at this time. Denies current depression symptoms, as well as suicidal or homicidal ideation. 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 Most recent platelet count normal: Latest Reference Range & Units 07/22/22 10:24 PLT 140 - 400 K/uL 374 Plan: -Desires a breast pump. Order breast pump. -Follow up ultrasound due to echogenic cardiac focus at [facility]. Will send a message about this. -Influenza vaccine completed. -Tdap vaccine completed. -Completing 28 week lab work today. -Patient will get her FMLA paperwork faxed to the office. -Patient reports that mood is stable. Counseled patient to call triage/go to labor and delivery if she has any vaginal bleeding, leaking of fluid, vaginal pressure, 6 or more painful contractions in an hour, abdominal pain, decreased movements, headaches, blurry vision, or right upper quadrant pain. Patient verbalized understanding. RTO in 2 weeks for return appointment or sooner if any concerns. Jessica Gu PA-C documented in this encounter Nursing Notes * CHARITY Turner - 12/11/2022 3:07 PM EDT Pt here for annel visit - discuss breast pump, FMLA and 3rd trimester u/s documented in this encounter Plan of Treatment Upcoming Encounters Date Type Specialty Care Team Description 12/23/2022 Office Visit Gynecology Obstetrics Jessica Junior PA-C [address] [place] [address] 01/06/2023 Office Visit Gynecology Obstetrics Jessica Junior PA-C [address] [place] [address] 01/20/2023 Office Visit Gynecology Obstetrics Jessica Junior PA-C [address] [place] [address] Health Maintenance Due Date Last Done Comments [...] of IUFD Anxiety disorder affecting , antepartum Depression complicating , antepartum Mental disorders of mother, antepartum Echogenic intracardiac focus of fetus on ultrasound Abnormal findings on screening Need for prophylactic vaccination with combined rmxxoxjzdg-cwzcrxi-nynbmwgui (DTP) vaccine documented in this encounter Advance Directives Latest [...] and were consensually agreed upon. Care Teams Crop Insurance Claims Adjuster Relationship Specialty Start Date End Date Harriet Ellis MD [address] [place] [address] PCP - General Family Medicine 05/12/18 documented as of this encounter"
--- OUTSIDE RECORDS SUMMARY | 2023-02-27 04:57 | External Medical Summary | Summary of Care ---
Author Name Unknown Organization [facility] Address [address] [place] [address] Phone [phone] Care Team Providers Care Accounts Receivable Bookkeeper Name Role Phone Harriet Ellis MD Primary Care Prov ider Reason for Visit * Reason Comments Return Visit Encounter Details Date Type Department Care Team (Late st Contact Info) Description 01/20/2023 3:45 PM EST Office Visit Gynecology/Obstetics [place] [address] [place] [address] Jessica Junior PA-C [address] [place] [address] Supervision of high-risk , third trimester*; History of abnormality in previous , currently ; History of IUFD; Anxiety disorder affecting , antepartum Allergies Active Allergy Reactions Criticality Noted Date Comments Pollen Other (Please comment) 03/06/2016 documented as of this encounter (statuses as of 01/22/2023) Medications Medication Sig Dispensed Refills Start Date [...] as of this encounter (statuses as of 01/22/2023) Active Problems Problem Noted Date Diagnosed Date [...] as of this encounter (statuses as of 01/22/2023) Resolved Problems Problem Noted Date Diagnosed Date [...] as of this encounter (statuses as of 01/22/2023) Immunizations Name Administration Dates Next Due COVID-19 [...] money to get more. Patient refused 06/2022 [place] Depression Scale Answer Date Recorded [place] Depression Scale Total 2 12/11/2022 The thought [...] Sign Reading Time Taken Comments Blood Pressure 108/66 01/20/2023 3:59 PM EST Pulse - - Temperature - - Respiratory Rate - - Oxygen Saturation - - Inhaled Oxygen Concentration - - Weight 88 kg (194 lb 1.6 oz) 01/20/2023 3:59 PM EST Height - - Body Mass Index 31.33 07/22/2022 9:35 AM EDT documented in this [...] as of this encounter Progress Notes * Zozos Stehman, Linnea, PA-C - 01/20/2023 4:16 PM EST Latesha Hernandez presents for visit at 34w0d. BP 108/66 | Wt 88 kg (194 lb 1.6 oz) | LMP 05/25/2022 (Approximate) | BMI 31.33 kg/m | BSA 2.02 m Doing well. Denies vaginal bleeding, leaking of fluid, vaginal pressure, contractions, abdominal pain, or abnormal vaginal discharge. Denies headaches, blurry vision, or right upper quadrant pain. Patient states she feels good movement. Patient reports that mood is stable. Patient has some constipation, but managing. Patient has some heartburn and nausea. Patient is going to try Tums. Physical Exam General: alert and oriented, no acute distress Pulmonary: normal respiratory effort, no accessory muscle use. Abdomen: gravid, soft, non-tender heart rate: 140's bpm Fundal height: 34 cm OB [place] Problems (from 07/17/22 to present) Problem Noted [...] suicidal or homicidal ideation. Plan: -GBS culture at 36 weeks. -s/p MATERNAL MEDICINE ultrasound - no follow up with MATERNAL MEDICINE needed. -Tdap vaccine completed. - contraception: partner vasectomy. -Desires to breastfeed. -Going to try Tums for heartburn. -Constipation is manageable. -Patient reports that her mood is stable. Counseled patient to call [...] Nursing Notes * Fatimah Guthrie RN - 01/20/2023 3:59 PM EST Routine OB check. Denies questions or complaints. documented in this encounter Plan of Treatment Upcoming Encounters Date Type Department Care Team (Late st Contact Info) Description 02/05/2023 3:15 PM EST Office Visit Gynecology/Obstetics [place] [address] [place] [address] Jessica Junior PA-C [address] [place] [address] 02/12/2023 8:45 AM EST Office Visit Gynecology/Obstetics [place] [address] [place] [phone] Jessica Junior PA-C 68 [facility] [place] [address] 02/17/2023 8:45 AM EST [facility] [place] [facility] [phone] Jessica Junior PA-C 68 [facility] [place] [address] 02/24/2023 3:45 PM EST Office [facility] [place] [facility] [phone] [facility] [address] Health Maintenance Due Date Last Done Comments [...] and were consensually agreed upon. Care Teams Accounts Receivable Bookkeeper Relationship Specialty Start Date End Date Harriet Ellis MD [address] [place] [phone] PCP - General Family Medicine 05/12/18 documented as of this encounter"
--- OUTSIDE RECORDS SUMMARY | 2023-02-27 04:57 | External Medical Summary | Summary of Care ---
Author Name Unknown Organization [facility] Address [address] [place] [address] Phone [phone] Care Team Providers Care Clinical Data Abstractor Name Role Phone Harriet Ellis MD Primary Care Prov ider Reason for Visit * Reason Comments Return Visit Encounter Details Date Type Department Care Team (Late st Contact Info) Description 12/23/2022 3:45 PM EDT Office Visit Gynecology/Obstetics [place] [address] [place] [address] Jessica Junior PA-C [address] [place] [address] Supervision of high-risk , third trimester*; History of abnormality in previous , currently ; History of IUFD; Depression complicating , antepartum; Anxiety disorder affecting , antepartum Allergies Active Allergy Reactions Criticality Noted Date Comments Pollen Other (Please comment) 03/06/2016 documented as of this encounter (statuses as of 12/28/2022) Medications Medication Sig Dispensed Refills Start Date [...] as of this encounter (statuses as of 12/28/2022) Active Problems Problem Noted Date Diagnosed Date Echogenic intracardiac focus of fetus on ultrasound 10/06/2022 Last Assessment & Plan: This is a variant of normal and is not expected to resolve during . No further ultrasound follow-up indicated. Constipation during , antepartum 2022 Supervision of high-risk , third [facility] 07/22/2022 Overview: Estimated Date of Delivery: 03/01/23 [...] as of this encounter (statuses as of 12/28/2022) Resolved Problems Problem Noted Date Diagnosed Date [...] as of this encounter (statuses as of 12/28/2022) Immunizations Name Administration Dates Next Due COVID-19 [...] money to get more. Patient refused 06/2022 [place] Depression Scale Answer Date Recorded [place] Depression Scale Total 2 12/11/2022 The thought [...] Sign Reading Time Taken Comments Blood Pressure 114/62 12/23/2022 3:53 PM EDT Pulse - - Temperature - - Respiratory Rate - - Oxygen Saturation - - Inhaled Oxygen Concentration - - Weight 84.9 kg (187 lb 3.2 oz) 12/23/2022 3:53 P M EDT Height - - Body Mass Index 30.21 07/22/2022 9:35 AM EDT documented in this [...] Progress Notes * Jessica Junior PA-C - 12/23/2022 4:04 PM EDT Latesha Hernandez presents for visit at 320w2d. BP 114/62 | Wt 84.9 kg (187 lb 3.2 oz) | LMP 05/25/2022 (Approximate) | BMI 30.21 kg/m | BSA 1.99m Doing well. Denies vaginal bleeding, leaking of fluid, vaginal pressure, contractions, abdominal pain, or abnormal vaginal discharge. Denies headaches, blurry vision, or right upper quadrant pain. Patient states she feels good movement. Patient reports that has some hemorrhoids and constipation. Patient reports that mood is stable. Physical Exam General: alert and oriented, no acute distress Pulmonary: normal respiratory effort, no accessory muscle use. 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 Most recent platelet count normal: 320 Plan: -O positive blood type. -Tdap vaccine completed. -s/p MATERNAL MEDICINE appointment. -Passed 1 hour glucose test. -GBS culture at 36 weeks. -Patient reports that mood is stable. -Try Tucks pads for hemorrhoids. Counseled patient to call triage/go to labor [...] Nursing Notes * Chyna Abbott LPN - 12/23/2022 3:53 PM EDT Routine OB check. Denies questions or complaints. documented in this encounter Plan of Treatment Upcoming Encounters Date Type Department Care Team (Late st Contact Info) Description 01/06/2023 3:45 PM EST Office Visit Gynecology/Obstetics [address] [phone] Jessica Junior PA-C [address] [place] [address] 01/20/2023 3:45 PM EST Office Visit Gynecology/Obstetics [place] 68 [facility] [place] [address] Jessica Junior PA-C [address] [place] [address] 02/05/2023 3:15 PM EST Office Visit Gynecology/Obstetics [place] [address] [place] [address] Jessica Junior PA-C [address] [place] [address] 02/17/2023 8:45 AM EST Office Visit Gynecology/Obstetics [place] [address] [place] [address] Jessica Junior PA-C [address] [place] [address] 02/24/2023 3:45 PM EST Office Visit Gynecology/Obstetics [place] [address] [place] [address] Jessica Junior PA-C [address] [place] [address] Health Maintenance Due Date Last Done Comments [...] other poor obstetric history History of IUFD Depression complicating , antepartum Mental disorders of mother, antepartum Anxiety disorder affecting , antepartum documented in [...] and were consensually agreed upon. Care Teams Clinical Data Abstractor Relationship Specialty Start Date End Date Harriet Ellis MD [address] [place] [address] PCP - General Family Medicine 05/12/18 documented as of this encounter"
--- OUTSIDE RECORDS SUMMARY | 2023-02-27 04:57 | External Medical Summary | Summary of Care ---
Author Name Unknown Organization [facility] Address [address] [place] [address] Phone [phone] Care Team Providers Care Process Laboratory Specialist Name Role Phone Harriet Ellis MD Primary Care Prov ider Reason for Visit * Reason Comments Return Visit Encounter Details Date Type Department Care Team (Late st Contact Info) Description 01/06/2023 3:45 PM EST Office Visit Gynecology/Obstetics [place] [address] [place] [address] Jessica Junior PA-C [address] [place] [address] Supervision of high-risk , third trimester*; History of abnormality in previous , currently ; History of IUFD; Anxiety disorder affecting , antepartum Allergies Active Allergy Reactions Criticality Noted Date Comments Pollen Other (Please comment) 03/06/2016 documented as of this encounter (statuses as of 01/06/2023) Medications Medication Sig Dispensed Refills Start Date [...] as of this encounter (statuses as of 01/06/2023) Active Problems Problem Noted Date Diagnosed Date [...] as of this encounter (statuses as of 01/06/2023) Resolved Problems Problem Noted Date Diagnosed Date [...] as of this encounter (statuses as of 01/06/2023) Immunizations Name Administration Dates Next Due COVID-19 [...] money to get more. Patient refused 06/2022 [place] Depression Scale Answer Date Recorded [place] Depression Scale Total 2 12/11/2022 The thought [...] Sign Reading Time Taken Comments Blood Pressure 116/70 01/06/2023 3:53 PM EST Pulse - - Temperature - - Respiratory Rate - - Oxygen Saturation - - Inhaled Oxygen Concentration - - Weight 86.9 kg (191 lb 8 oz) 01/06/2023 3:53 PM EST Height - - Body Mass Index 30.91 07/22/2022 9:35 AM EDT documented in this [...] Progress Notes * Jessica Junior PA-C - 01/06/2023 3:54 PM EST Latesha Hernandez presents for visit at 32w2d. BP 116/70 | Wt 86.9 kg (191 lb 8 oz) | LMP 05/25/2022 (Approximate) | BMI 30.91 kg/m | BSA 2.01 m Doing well. Denies vaginal bleeding, leaking of fluid, vaginal pressure, contractions, abdominal pain, or abnormal vaginal discharge. Denies headaches, blurry vision, or right upper quadrant pain. Patient states she feels good movement. Patient reports that mood is stable. Physical Exam General: alert and oriented, no acute distress Pulmonary: normal respiratory effort, no accessory muscle use. Abdomen: gravid, soft, non-tender heart rate: 140's bpm Fundal height: 32 cm OB [place] Problems (from 07/17/22 to present) Problem Noted [...] culture at 36 weeks. -s/p MATERNAL MEDICINE appointment. -Completed influenza vaccine and completed Tdap vaccine. -O positive blood type. -Patient reports that her mood is stable. [...] Nursing Notes * Chyna Abbott LPN - 01/06/2023 3:53 PM EST Routine OB check. Denies questions or complaints. documented in this encounter Plan of Treatment Upcoming Encounters Date Type Department Care Team (Late st Contact Info) Description 01/20/2023 3:45 PM EST Office Visit Gynecology/Obstetics [place] [address] [place] [phone] Jessica Junior PA-C [address] [place] [address] 02/05/2023 3:15 PM EST Office Visit Gynecology/Obstetics [place] [address] [place] [phone] Jessica Junior PA-C [address] [place] [address] 02/12/2023 8:45 AM EST Office Visit Gynecology/Obstetics [place] [address] [place] [address] Jessica Junior PA-C 68 [facility] [place] [address] 02/17/2023 8:45 AM EST Office Visit Gynecology/Obstetics [place] [facility] [place] [address] Jessica Junior PA-C 68 [facility] [place] [address] 02/24/2023 3:45 PM EST Office [facility] [place] [facility] [address] Jessica [facility]C [facility] [address] Health Maintenance Due Date Last Done Comments [...] and were consensually agreed upon. Care Teams Process Laboratory Specialist Relationship Specialty Start Date End Date Harriet Ellis MD [address] [place] [id number] PCP - General Family Medicine 05/12/18 documented as of this encounter"
--- OUTSIDE RECORDS SUMMARY | 2023-02-27 04:58 | External Medical Summary ---
Author Name Unknown Address Unknown Organization [id number]:[facility] - [address] [place] [id number] Laboratory Report Ordering Provider Test Date Status CODY LOPEZ 12/11/2022 16:07:16 Final Observation Date Value Abnormality Reference (Units ) Status ABO 12/11/2022 16:07:16 O Final RH 12/11/2022 16:07:16 Positive Final RED BLOOD CELL ANTIBODY SCREEN 12/11/2022 16:07:16 Negative Final SPECIMEN EXPIRATION DATE 12/11/2022 16:07:16 12/14/2022 23:59 Final Performing Location [facility] [address] [place] [id number]
--- OUTSIDE RECORDS SUMMARY | 2023-02-27 04:58 | External Medical Summary | Summary of Care ---
Author Name Unknown Organization [facility] Address [address] [place] [address] Phone [phone] Care Team Providers Care Caustic Liquor Maker Name Role Phone Harriet Ellis MD Primary Care Prov ider Reason for Visit * Reason Comments Return Visit Encounter Details Date Type Department Care Team Description 11/12/2022 Office Visit Gynecology/Obstetics [place] [address] [place] [address] Jessica Junior PA-C [address] [place] [address] Supervision of high-risk , second trimester*; History of abnormality in previous , currently ; History of IUFD; Anxiety disorder affecting , antepartum; Thrombocytosis Allergies Active Allergy Reactions Severity Noted Date Comments Pollen Other (Please comment) 03/06/2016 documented as of this encounter (statuses as of 11/14/2022) Medications Medication Sig Dispensed Refills Start Date [...] as of this encounter (statuses as of 11/14/2022) Active Problems Problem Noted Date Echogenic intracardiac [...] antepartu m 07/22/2022 Supervision of high-risk , [place] trimester 07/22/2022 Overview: Estimated Date of Delivery: 03/01/23 Continue vitamin. O positive. Rubella and varicella immune. Qnatal low risk. S/p anatomy ultrasound at MATERNAL MEDICINE. Will order CBC, type and screen, RPR and one hour glucose test to be completed at 28 weeks. Tdap vaccine at 27 to 36 weeks. Declines influenza vaccine on 11/12/2022. History of abnormality in previous , currently [...] as of this encounter (statuses as of 11/14/2022) Resolved Problems Problem Noted Date Resolved Date [...] We met in conjunction with Madelin Camacho L[facility]. We reviewed the range of outcomes [...] as of this encounter (statuses as of 11/14/2022) Immunizations Name Administration Dates Next Due COVID-19 mRNA, LNP-s, No Pre serve, 2-Dose Series (Moderna) 05/09/2020,03/28/2020 COVID-19, mRNA, LNP-s, PF, B ooster, 100mcg/0.5mg (Moderna) 01/31/2021 Covid-19, Mrna, Lnp-s, Pf, B ivalent, 30 Mcg, IM, 12 yrs and above (Pfizer) 01/06/2022 PPD 08/19/2017 Seasonal Influenza, PF, 6 mo ns & Above, IM , (Flulaval) 12/26/2021,11/24/2019,12/01/2017 Seasonal Influenza, Quadriva lent, No Preserve, IM 11/17/2016 Seasonal Influenza, Split, I IV3, With Preserve, Inj 11/22/2015 TDAP (age 10 and older)(Boostrix) 02/14/2020,,07/24/2016 documented as of this encounter Social History [...] Sign Reading Time Taken Comments Blood Pressure 104/62 11/12/2022 4:17 PM EDT Pulse - - Temperature - - Respiratory Rate - - Oxygen Saturation - - Inhaled Oxygen Concentration - - Weight 81 kg (178 lb 9.6 oz) 11/12/2022 4:17 PM EDT Height - - Body Mass Index 28.83 07/22/2022 9:35 AM EDT documented in this [...] Progress Notes * Jessica Davila PA-C - 11/12/2022 4:28 PM EDT Latesha Hernandez presents for visit at 24w3d. BP 104/62 | Wt 81 kg (178 lb 9.6 oz) | LMP 05/25/2022 (Approximate) | BMI 28.83 kg/m | BSA 1.94 m Doing well. Denies vaginal bleeding, leaking [...] non-tender heart rate: 140's bpm Fundal height: 25 cm OB [place] Problems (from 07/17/22 to present) Problem Noted Resolved Supervision of high-risk , second trimester 07/22/2022 by Jessica Davila PA-C No Estimated Date of Delivery: 03/01/23 Continue vitamin. O positive. Rubella and varicella immune. Qnatal low risk. S/p anatomy ultrasound at MATERNAL MEDICINE. Will order CBC, type and screen, RPR and one hour glucose test to be completed at 28 weeks. Tdap vaccine at 27 to 36 weeks. Declines influenza vaccine on 11/12/2022. 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 Qnatal low risk. Declined genetic counseling at this time. History of IUFD 09/27/2019 by Gareth Montelongo MD No History of demise at 37w2d of baby boy (Bhavseh) with Trisomy 22. Baby had multiple anomalies, [...] PLT 140 - 400 K/uL 374 Plan: -Patient completed MATERNAL MEDICINE appointment - no follow up needed -Patient desires influenza vaccine next appointment. -Questioning ultrasound in 3rd trimester for echogenic focus. Counseled patient to call triage/go to labor and delivery if she has any vaginal bleeding, leaking of fluid, vaginal pressure, four or more painful contractions in an hour, abdominal pain, decreased movements, headaches, blurry vision, or right upper quadrant pain. Patient verbalized understanding. RTO in 4 weeks for a return appointment or sooner if any concerns. Jessica Gu PA-C documented in this encounter Plan of Treatment Upcoming Encounters Date Type Specialty Care Team Description 12/11/2022 Office Visit Gynecology Obstetrics Jessica Junior PA-C [address] [place] [address] 12/23/2022 Office Visit Gynecology Obstetrics Jessica Junior PA-C [address] [place] [address] 01/06/2023 Office Visit Gynecology Obstetrics Jessica Junior PA-C [address] [place] [address] 01/20/2023 Office Visit Gynecology Obstetrics Jessica Junior PA-C [address] [place] [address] Scheduled Orders Name Type Priority Associated Diagnoses Orde r Schedule 50-G GESTATIONAL GLUCOSE, 1 HOUR Lab Routine Supervision of high-risk , second trimester Expected: 11/26/2022, Expires: 11/13/2023 CBC WITH WBC DIFFERENTIAL AND ANEMIA REFLEX WORKUP Lab Routine Supervision of high-risk , second trimester Expected: 11/26/2022, Expires: 11/13/2023 RPR Lab Routine Supervision of high-risk , second trimester Expected: 11/26/2022, Expires: 11/13/2023 TYPE AND SCREEN Lab Routine Supervision of high-risk , second trimester Expected: 11/26/2022 (Approximate), Expires: 05/13/2023 Health Maintenance Due Date Last Done Comments Hepatitis B (1 of 3 - 3-dose series) 1995 Depression Screening 07/09/2019 07/08/2018 Influenza Vaccine (FLU shot) (#1) 2022 12/26/2021, 11/24/2019, 12/01/2017, Additional history exists Pap Smear 02/12/2025 02/12/2022, 03/03, 08/18/2014, Additional history exists DTaP,Tdap,and Td Vaccines (4 - Td or Tdap) 02/13/2030 02/14/2020, 03/22/2019, 07/24/2016 COVID-19 Vaccine Completed 01/06/2022, 04/2020, 05/09/2020, Additional history exists Hepatitis C Screening Completed 07/22/2022 , 11/02/2019, 09/14/2018, Additional history exists GARDASIL-HPV IMMUNIZATION SERIES Aged [...] Visit Diagnoses Diagnosis Supervision of high-risk , second trimester- Primary History of abnormality in previous , currently with other poor obstetric history History of IUFD Anxiety disorder affecting , antepartum Thrombocytosis Essential thrombocythemia documented in this encounter Advance Directives Latest [...] and were consensually agreed upon. Care Teams Caustic Liquor Maker Relationship Specialty Start Date End Date Harriet Ellis MD [address] [place] [address] PCP - General Family Medicine 05/12/18 documented as of this encounter"
--- OUTSIDE RECORDS SUMMARY | 2023-02-27 04:58 | External Medical Summary | Summary of Care ---
Author Name Unknown Organization [facility] Address [address] [facility] [place] [address] Phone [phone] Care Team Providers Care Electronic Equipment Repairmen Name Role Phone Harriet Ellis MD Primary Care Prov ider Reason for Visit * Reason Onset Date Comments Medication Administration 12/01/2022 Flu an d/or Pneumo Inj Encounter Details Date Type Department Care Team Description 12/01/2022 Immunization Pediatrics [address] [phone] [place], Nurse Peds [address] [address] Need for prophylactic vaccination and inoculation against influenza* Allergies Active Allergy Reactions Severity Noted Date Comments Pollen Other (Please comment) 03/06/2016 documented as of this encounter (statuses as of 12/01/2022) Medications Medication Sig Dispensed Refills Start Date [...] as of this encounter (statuses as of 12/01/2022) Active Problems Problem Noted Date Echogenic intracardiac [...] as of this encounter (statuses as of 12/01/2022) Resolved Problems Problem Noted Date Resolved Date [...] as of this encounter (statuses as of 12/01/2022) Immunizations Name Administration Dates Next Due COVID-19 [...] No 04/27/2020 documented as of this encounter Patient Instructions * Patient Instructions* Patricia Swanson LPN - 12/01/2022 3:02 PM EDT ~~PATIENT INSTRUCTIONS FOR FLU SHOT~~ Possible side effects of influenza vaccine, (flu shot), are usually mild and include: 1. Soreness or redness at injection site 2. Low grade fever 3. Body aches You may use Tylenol/Acetaminophen as needed for these symptoms. LET YOUR DOCTOR KNOW IMMEDIATELY IF YOU HAVE DIFFICULTY BREATHING OR SWALLOWING, EXPERIENCE ITCHINGOF FEET OR HANDS, HAVE SWELLING OF EYES, FACE OR INSIDE OF NOSE. documented in this encounter Progress Notes * Patricia Swanson LPN - 12/01/2022 3:02 PM EDT PRE - ADMINISTRATION DOCUMENTATION Are you experiencing any cold symptoms or fever? No Have you had Guillain-Redfield Syndrome (an illness that causes paralysis) within the last 6 weeks? No Have you had the flu shot in the past? YES Have you ever had a reaction to the flu shot? No Patricia Swanson LPN, 12/01/2022 3:02 PM Immunization Administration Documentation Time Out Procedure Performed: Yes Patient Identified (Ask Name/Date of ): Yes Does the patient have a fever greater than 101 degrees today? No Patient allergic to latex? No VFC Stock: No Immunization(s) verified: Yes, Immunization Name: Flu, VIS Sheet(s) given: Yes Verified Side and Site: Yes Verified Shot(s) with Parent(s)/Patient: Yes documented in this encounter Plan of Treatment Upcoming Encounters Date Type Specialty Care Team Description 12/11/2022 Office Visit Gynecology Obstetrics Jessica Junior PA-C [address] [place], [place] [address] [place] [address] 12/23/2022 Office Visit Gynecology Obstetrics Jessica Junior PA-C [address] [place] [address] 01/06/2023 Office Visit Gynecology Obstetrics Jessica Junior PA-C [address] [facility] [place] [address] 01/20/2023 Office Visit Gynecology Obstetrics Jessica Junior PA-C [address] [facility] [place] [address] Health Maintenance Due Date Last Done Comments Hepatitis B (1 of 3 - 3-dose series) 1995 Depression Screening 07/09/2019 07/08/2018 Pap Smear 02/12/2025 02/12/2022, 03/03, 08/18/2014, Additional history exists DTaP,Tdap,and Td Vaccines (4 - Td or Tdap) 02/13/2030 02/14/2020, 03/22/2019, 07/24/2016 COVID-19 Vaccine Completed 01/06/2022, 04/2020, 05/09/2020, Additional history exists Influenza Vaccine (FLU shot) [...] as of this encounter Visit Diagnoses Diagnosis Need for prophylactic vaccination and inoculation against influenza- Primary documented in this encounter Advance Directives Latest [...] and were consensually agreed upon. Care Teams Electronic Equipment Repairmen Relationship Specialty Start Date End Date Harriet Ellis MD [address] [place] [phone] PCP - General Family Medicine 05/12/18 documented as of this encounter
--- OUTSIDE RECORDS SUMMARY | 2023-02-27 04:58 | External Medical Summary | Summary of Care ---
Author Name Unknown Organization [facility] Address [address] [place] [address] Phone [phone] Care Team Providers Care Benefits Officer Name Role Phone Harriet Ellis MD Primary Care Prov ider Reason for Visit * Reason Comments Return Visit Encounter Details Date Type Department Care Team Description 11/12/2022 Office Visit Gynecology/Obstetics [place] [address] [place] [phone] Jessica Junior PA-C [address] [place] [address] Supervision of high-risk , second [...] 140's bpm Fundal height: 25 cm OB [place] Problems (from 07/17/22 to present) Problem Noted [...] Office Visit Gynecology Obstetrics Jessica Junior PA-C [address] [place] [address] 12/23/2022 Office Visit Gynecology Obstetrics Jessica Junior PA-C [address] [place] [address] 01/06/2023 Office Visit Gynecology Obstetrics Jessica Junior PA-C [address] [place] [address] 01/20/2023 Office Visit Gynecology Obstetrics Jessica Junior PA-C [address] [place] [address] Scheduled Orders Name Type Priority Associated Diagnoses [...] and were consensually agreed upon. Care Teams Benefits Officer Relationship Specialty Start Date End Date Harriet Ellis MD [address] [place] [address] PCP - General Family Medicine 05/12/18 documented as of this encounter"
--- OUTSIDE RECORDS SUMMARY | 2023-02-27 04:58 | External Medical Summary ---
Author Name Unknown Address Unknown Organization [id number]:LABORATORY [facility] [place] - [address] [facility] [place] [address] Laboratory Report Ordering Provider Test Date Status CODY LOPEZ 12/11/2022 16:07:16 Final Observation Date Value Abnormality Reference (Units ) Status SYNC LEUKOCYTES IN BLOOD BY AUTOMATED COUNT 12/11/2022 16:07:16 10.10 4.00-10.80 (K/uL) Final Segs 12/11/2022 16:07:16 71.5 40.0-75.0 (%) Final Lymphs % 12/11/2022 16:07:16 16.1 Below low normal 18.0-42.0 (%) Final Monos 12/11/2022 16:07:16 8.7 1.0-11.0 (%) Final Eosinophils 12/11/2022 16:07:16 0.9 0.0-6.0 (%) Final Basos 12/11/2022 16:07:16 0.5 0.0-2.0 (%) Final Immature Granulocyte, Percent 12/11/2022 16:07:16 2.3 Above high normal 0.0-2.0 (%) Final Absolute Segs 12/11/2022 16:07:16 7.22 1.80-7.70 (K/uL) Final Lymphs, absolute 12/11/2022 16:07:16 1.63 1.00-4.80 (K/ul) Final Monos, Abs 12/11/2022 16:07:16 0.88 0.00-1.10 (K/uL) Final Eos, Abs 12/11/2022 16:07:16 0.09 0.00-0.70 (K/uL) Final Basos, Abs 12/11/2022 16:07:16 0.05 0.00-0.20 (K/uL) Final Immature Granulocytes, Number 12/11/2022 16:07:16 0.23 Above high normal 0.00-0.20 (K/uL) Final Performing Location LABORATORY [facility] - [address] [place] [address]
--- OUTSIDE RECORDS SUMMARY | 2023-02-27 04:58 | External Medical Summary | Summary of Care ---
Author Name Unknown Organization [facility] Address [address] [place] [address] Phone [phone] Care Team Providers Care Web Ui Software Engineer Name Role Phone Harriet Ellis MD Primary Care Prov ider Reason for Visit * Reason Comments Outpatient Testing Encounter Details Date Type Department Care Team Description 12/11/2022 Laboratory Laboratory Patient Service [address] [phone] [address] Supervision of high-risk , second trimester Allergies Active Allergy Reactions Severity Noted Date Comments Pollen Other (Please comment) 03/06/2016 documented as of this encounter (statuses as of 12/11/2022) Medications Medication Sig Dispensed Refills Start Date [...] as of this encounter (statuses as of 12/11/2022) Active Problems Problem Noted Date Echogenic intracardiac [...] 36 weeks. Declines influenza vaccine on 11/12/2022. contraception: partner vasectomy. Desires to breastfeed. Desires [...] as of this encounter (statuses as of 12/11/2022) Resolved Problems Problem Noted Date Resolved Date [...] as of this encounter (statuses as of 12/11/2022) Immunizations Name Administration Dates Next Due COVID-19 [...] No 04/27/2020 documented as of this encounter Plan of Treatment Upcoming Encounters Date Type Specialty Care Team Description 12/23/2022 Office Visit Gynecology Obstetrics Jessica Junior PA-C [address] [place] [address] 01/06/2023 Office Visit Gynecology Obstetrics Jessica Junior PA-C [address] [place] [address] [place] [address] 01/20/2023 Office Visit Gynecology Obstetrics Jessica Junior PA-C [address] [place], [place] [address] [place] [address] Pending Results Name Type Priority Associated Diagnoses Date /Time 50-G GESTATIONAL GLUCOSE, 1 HOUR Lab Routine Supervision of high-risk , second trimester 12/11/2022 4:07 PM EDT CBC WITH WBC DIFFERENTIAL AND ANEMIA REFLEX WORKUP Lab Routine Supervision of high-risk , second trimester 12/11/2022 4:07 PM EDT RPR Lab Routine Supervision of high-risk , second trimester 12/11/2022 4:07 PM EDT TYPE AND SCREEN Lab Routine Supervision of high-risk , second trimester 12/11/2022 4:07 PM EDT ANEMIA CBC Lab Routine Supervision of high-risk , second trimester 12/11/2022 4:07 PM EDT DIFFERENTIAL, AUTOMATED Lab Routine Supervision of high-risk , second trimester 12/11/2022 4:07 PM EDT ANEMIA REFLEX CHEMISTRY HOLD Lab Routine Supervision of high-risk , second trimester 12/11/2022 4:07 PM EDT Health Maintenance Due Date Last Done Comments [...] Diagnoses Diagnosis Supervision of high-risk , second trimester documented in this encounter Advance Directives Latest Code Status on File Code Status Date Activated Date Inactivated Comments Full Code 04/27/2020 8:12 PM 04/29/2020 3:46 PM This order reflects the patients wishes and were consensually agreed upon. Code Status History Code Status Date Activated Date Inactivated Comments Full Code 04/08/2019 6:13 PM 04/09/2019 8:15 PM This or trniidad reflects the patients wishes and were consensually agreed upon. Care Teams Web Ui Software Engineer Relationship Specialty Start Date End Date Harriet Ellis MD [address] [place] [phone] PCP - General Family Medicine 05/12/18 documented as of this encounter
--- OUTSIDE RECORDS SUMMARY | 2023-02-27 04:58 | External Medical Summary ---
Author Name Unknown Address Unknown Organization [id number]:[facility] - [address] [place] [address] Laboratory Report Ordering Provider Test Date Status CODY LOPEZ 12/11/2022 16:07:16 Final Observation Date Value Abnormality Reference (Units ) Status Glucose [Moles/volume] in Serum or Plasma --1 hour post 50 g glucose PO 12/11/2022 16:07:16 91 70-129 (mg/dL) Final Performing Location LAB[facility]ORY [facility] - [address] [place] [address]
--- OUTSIDE RECORDS SUMMARY | 2023-02-27 04:58 | External Medical Summary ---
Author Name Unknown Address Unknown Organization [id number]:[facility] [place] [facility] [address] [facility] [address] [facility] [address] Laboratory Report Ordering Provider Test Date Status CODY LOPEZ 12/11/2022 16:07:16 Final Observation Date Value Abnormality Reference (Units ) Status Reagin Ab [Presence] in Serum by RPR 12/11/2022 16:07:16 Nonreactive Nonreactive Final Performing Location [facility] [place] [facility] [address] [facility] [address]
--- OUTSIDE RECORDS SUMMARY | 2023-02-27 04:58 | External Medical Summary ---
Author Name Unknown Address Unknown Organization [id number]:[facility] [place] - [address] [facility] [address] Laboratory Report Ordering Provider Test Date Status CODY LOEPZ 12/11/2022 16:07:16 Final Observation Date Value Abnormality Reference (Units ) Status WBC, Total 12/11/2022 16:07:16 10.10 4.00-10.8 0 (K/uL) Final RBC 12/11/2022 16:07:16 4.66 3.85-5.15 (M/uL) Final Hemoglobin 12/11/2022 16:07:16 13.5 12.0-15.3 (g/dL) Final Anemia reflex testing trigge rs on a HGB < 12.0 for Females and HGB < 13.0 for Males in accordance with the WHO Anemia Guidelines
Anemia reflex testing triggers on a HGB < 12.0 for Females and HGB < 13.0 for Males in accordance with the WHO Anemia Guidelines HCT 12/11/2022 16:07:16 40.8 36.0-45.2 (%) Final MCV 12/11/2022 16:07:16 87.6 81.5-97.5 (fL) Final MCH 12/11/2022 16:07:16 29.0 27.0-34.0 (pg) Final MCHC 12/11/2022 16:07:16 33.1 32.0-36.0 (g/dL) Final RDW 12/11/2022 16:07:16 13.9 11.5-15.5 (%) Final Platelets 12/11/2022 16:07:16 320 140-400 (K /uL) Final MPV 12/11/2022 16:07:16 10.3 6.6-11.1 ( fL) Final Nucleated erythrocytes/100 leukocytes [Ratio] in Blood by Automated count 12/11/2022 16:07:16 0 <=0 (/100 WBCs) Fi nal Performing Location LAB[facility]ATORY [facility] - [address] [facility] [address]
--- OUTSIDE RECORDS SUMMARY | 2023-02-27 04:58 | External Medical Summary | Summary of Care ---
Author Name Unknown Organization [facility] Address [address] [place] [address] Phone [phone] Care Team Providers Care Jd Edwards Developer Name Role Phone Harriet Ellis MD Primary Care Prov ider Reason for Visit * Reason Comments Outpatient Testing Encounter Details Date Type Department Care Team Description 12/11/2022 Laboratory Laboratory Patient Service [address] [phone] [address] Supervision of high-risk , second trimester Allergies Active Allergy Reactions Severity Noted Date Comments Pollen Other (Please comment) 03/06/2016 documented as of this encounter (statuses as of 12/12/2022) Medications Medication Sig Dispensed Refills Start Date [...] as of this encounter (statuses as of 12/12/2022) Active Problems Problem Noted Date Echogenic intracardiac [...] as of this encounter (statuses as of 12/12/2022) Resolved Problems Problem Noted Date Resolved Date [...] as of this encounter (statuses as of 12/12/2022) Immunizations Name Administration Dates Next Due COVID-19 [...] Office Visit Gynecology Obstetrics Jessica Junior PA-C [address] [place] [address] 01/06/2023 Office Visit Gynecology Obstetrics Jessica Junior PA-C [address] [facility] [place] [address] 01/20/2023 Office Visit Gynecology Obstetrics [facility]-C [facility] [place] [phone] Pending Results Name Type Priority Associated Diagnoses Date /Time RPR Lab Routine Supervision of high-risk , [...] Procedure Name Priority Date/Time Associated Diagnosis Comments ANEMIA REFLEX CHEMISTRY HOLD Routine 12/11/2022 4:07 PM EDT Supervision of high-risk , second trimester ANEMIA CBC Routine 12/11/2022 4:07 PM EDT Supervision of high-risk , second trimester DIFFERENTIAL, AUTOMATED Routine 12/11/2022 4:07 PM EDT Supervision of high-risk , second trimester DIFFERENTIAL, AUTOMATED Routine 12/11/2022 4:07 PM EDT Supervision of high-risk , second trimester TYPE AND SCREEN Routine 12/11/2022 4:07 PM EDT Supervision of high-risk , second trimester 50-G GESTATIONAL GLUCOSE, 1 HOUR Routine 12/11/2022 4:07 PM EDT Supervision of high-risk , second trimester documented in this encounter Results * ANEMIA REFLEX CHEMISTRY HOLD (12/11/2022 4:07 PM EDT) Blood Venous blood specimen / Unknown Venipuncture / Unknown 12/11/2022 4:07 PM EDT 12/11/2022 4:07 PM EDT Jessica Davila PA-C LAB BLOOD ORDERABLES [facility] [address] [place] [address] * (ABNORMAL) DIFFERENTIAL, AUTOMATED (12/11/2022 4:07 PM EDT) WBC 10.10 4.00 - 10.80 K/uL 12/11/2022 11:34 PM EDT [facility] Neutrophils % 71.5 40.0 - 75.0 % 12/11/2022 11:34 PM EDT [facility] Lymphocytes % 16.1(L) 18.0 - 42.0 % 12/11/2022 11:34 PM EDT [facility] Monocytes % 8.7 1.0 - 11.0 % 12/11/2022 11:34 PM EDT [facility] Eosinophils % 0.9 0.0 - 6.0 % 12/11/2022 11:34 PM EDT [facility] Basophils % 0.5 0.0 - 2.0 % 12/11/2022 11:34 PM EDT [facility] Immature Granulocytes % 2.3(H) 0.0 - 2.0 % 12/11/2022 11:34 PM EDT [facility] Absolute Neutrophils 7.22 1.80 - 7.70 K/uL 12/11/2022 11:34 PM EDT [facility] Absolute Lymphocytes 1.63 1.00 - 4.80 K/ul 12/11/2022 11:34 PM EDT [facility] Absolute Monocytes 0.88 0.00 - 1.10 K/uL 12/11/2022 11:34 PM EDT [facility] Absolute Eosinophils 0.09 0.00 - 0.70 K/uL 12/11/2022 11:34 PM EDT [facility] Absolute Basophils 0.05 0.00 - 0.20 K/uL 12/11/2022 11:34 PM EDT [facility] Absolute Immature Granulocytes 0.23(H) 0.00 - 0.20 K/uL 12/11/2022 11:34 PM EDT [facility] Blood Venous blood specimen / Unknown Venipuncture / Unknown 12/11/2022 4:07 PM EDT 12/11/2022 4:07 PM EDT Jessica Davila PA-C LAB BLOOD ORDERABLES [facility] [address] [place] [address] * ANEMIA CBC (12/11/2022 4:07 PM EDT) WBC 10.10 4.00 - 10.80 K/uL 12/11/2022 11:34 PM EDT [facility] RBC 4.66 3.85 - 5.15 M/uL 12/11/2022 11:34 PM EDT [facility] HGB 13.5 12.0 - 15.3 g/dL 12/11/2022 11:34 PM EDT [facility] Comment: Anemia reflex testing triggers on a HGB < 12.0 for Females and HGB < 13.0 for Males in accordance with the WHO Anemia Guidelines Anemia reflex testing triggers on a HGB < 12.0 for Females and HGB < 13.0 for Males in accordance with the WHO Anemia Guidelines HCT 40.8 36.0 - 45.2 % 12/11/2022 11:34 PM EDT [facility] MCV 87.6 81.5 - 97.5 fL 12/11/2022 11:34 PM EDT [facility] MCH 29.0 27.0 - 34.0 pg 12/11/2022 11:34 PM EDT [facility] MCHC 33.1 32.0 - 36.0 g/dL 12/11/2022 11:34 PM EDT [facility] RDW 13.9 11.5 - 15.5 % 12/11/2022 11:34 PM EDT [facility] PLT 320 140 - 400 K/uL 12/11/2022 11:34 PM EDT [facility] MPV 10.3 6.6 - 11.1 fL 12/11/2022 11:34 PM EDT [facility] nRBCs 0 <=0 /100 WBCs 12/11/2022 11:34 PM EDT [facility] Blood Venous blood specimen / Unknown Venipuncture / Unknown 12/11/2022 4:07 PM EDT 12/11/2022 4:07 PM EDT Jessica Davila PA-C LAB BLOOD ORDERABLES Performing Organization Address City/[facility] Co de Phone Number [facility] [address] [place] [address] * TYPE AND SCREEN (12/11/2022 4:07 PM EDT) Pathologist [facility] ABO O 12/11/2022 11:31 PM EDT [facility] Rh Positive 12/11/2022 11:31 PM EDT [facility] Red Blood Cell Antibody Screen Negative 12/11/2022 11:31 PM EDT [facility] Specimen Expiration Date 12/14/2022 23:59 12/11/2022 11:31 PM EDT [facility] Blood Venous blood specimen / Unknown Venipuncture / Unknown 12/11/2022 4:07 PM EDT 12/11/2022 4:07 PM EDT Jessica Davila PA-C LAB BLOOD BANK TEST ORDERABLES Performing Organization Address [facility] Co de Phone Number [facility] [address] [place] [address] * 50-G GESTATIONAL GLUCOSE, 1 HOUR (12/11/2022 4:07 PM EDT) 50-g Gestational Glucose, 1 Hour 91 70 - 129 mg/dL 12/11/2022 10:50 PM EDT [facility] Blood Venous blood specimen / Unknown Venipuncture / Unknown 12/11/2022 4:07 PM EDT 12/11/2022 4:07 PM EDT Jessica Davila PA-C LAB BLOOD ORDERABLES [facility] [address] [place] [address] documented in this encounter Visit [...] and were consensually agreed upon. Care Teams Jd Edwards Developer Relationship Specialty Start Date End Date Harriet Ellis MD [address] [place] [phone] PCP - General Family Medicine 05/12/18 documented as of this encounter
--- OUTSIDE RECORDS SUMMARY | 2023-02-27 04:59 | External Medical Summary | Summary of Care ---
Author Name Unknown Organization [facility] Address [address] [place] [address] Phone [phone] Care Team Providers Care Improvement Manager Name Role Phone Harriet Ellis MD Primary Care Prov ider Reason for Visit * Reason Comments Return Visit Encounter Details Date Type Department Care Team Description 10/07/2022 Office Visit Gynecology/Obstetics [place] [address] [place] [address] Gareth Montelongo MD [address] [place] [address] Supervision of high-risk , first trimester*; Constipation during , antepartum; History of abnormality in previous , currently ; History of IUFD; Depression complicating , antepartum; Thrombocytosis; Anxiety disorder affecting , antepartum Allergies Active Allergy Reactions Severity Noted Date Comments Pollen Other (Please comment) 03/06/2016 documented as of this encounter (statuses as of 10/07/2022) Medications Medication Sig Dispensed Refills Start Date [...] as of this encounter (statuses as of 10/07/2022) Active Problems Problem Noted Date Echogenic intracardiac [...] antepartu m 07/22/2022 Supervision of high-risk , firs t trimester 07/22/2022 Overview: Estimated Date of Delivery: 03/01/23 Continue vitamin. O positive. Rubella and varicella immune. Qnatal low risk. MSAFP testing at 15 weeks to 22 weeks, 6 days. Anatomy ultrasound at 20 weeks at [facility]. History of abnormality in previous , currently [...] as of this encounter (statuses as of 10/07/2022) Resolved Problems Problem Noted Date Resolved Date [...] as of this encounter (statuses as of 10/07/2022) Immunizations Name Administration Dates Next Due COVID-19 mRNA, LNP-s, No Pre serve, 2-Dose Series (Moderna) 05/09/2020,03/28/2020 Covid-19 Mrna, Lnp-s, No Pre serve, Booster (Moderna) 01/31/2021 Covid-19, Mrna, Lnp-s, Pf, B ivalent, 30 Mcg, IM, 12 yrs and above (Pfizer) 01/06/2022 PPD 08/19/2017 Seasonal Influenza, Quadriva lent, No Preserve, 6 Mons & Above, IM 12/26/2021,11/24/2019,12/01/2017 Seasonal Influenza, Quadriva lent, No Preserve, [...] Sign Reading Time Taken Comments Blood Pressure 112/68 10/07/2022 3:16 PM EDT Pulse - - Temperature - - Respiratory Rate - - Oxygen Saturation - - Inhaled Oxygen Concentration - - Weight 78.2 kg (172 lb 4.8 oz) 10/07/2022 3:16 P M EDT Height - - Body Mass Index 27.81 07/22/2022 9:35 AM EDT documented in this [...] as of this encounter Progress Notes * Gareth Montelongo MD - 10/07/2022 3:37 PM EDT 1) 19 wks 2 days RTOB Denied any complaints today Denied any vag bleeding lof and admits to pos movement 2) intracardiac focus found on anatomy scan advised its a marker but no further testing due to isolated marker advised msafp to be sure and amniocentesis is always an option but since isolated. 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 Labor and bleeding precautions given preeclampsia precautions given Call with any questions or concerns Return to clinic in 4 wks documented in this encounter Nursing Notes * Chyna Abbott LPN - 10/07/2022 3:16 PM EDT Patient here for RIMMA documented in this encounter Plan of Treatment Upcoming Encounters Date Type Specialty Care Team Description 11/12/2022 Office Visit Gynecology Obstetrics Jessica Junior PA-C [address] [place] [address] 12/10/2022 Office Visit Gynecology Obstetrics Jessica Junior PA-C [address] [place] [address] Pending Results Name Type Priority Associated Diagnoses Date /Time MATERNAL SERUM AFP Lab Routine Supervision of high-risk , first trimester History of IUFD 10/07/2022 3:42 PM EDT Health Maintenance Due Date Last Done Comments Hepatitis B (1 of 3 - 3-dose series) 1993 Depression Screening, Annual for Pts 12 and Over 07/09/2019 07/08/2018 Influenza Vaccine (FLU shot) (#1) [...] Visit Diagnoses Diagnosis Supervision of high-risk , first trimester- Primary Constipation during , antepartum History of abnormality in previous , currently with other poor obstetric history History of IUFD Depression complicating , antepartum Mental disorders of mother, antepartum Thrombocytosis Essential thrombocythemia Anxiety disorder affecting , antepartum documented in [...] and were consensually agreed upon. Care Teams Improvement Manager Relationship Specialty Start Date End Date Harriet Ellis MD [address] [place] [phone] PCP - General Family Medicine 05/12/18 documented as of this encounter
--- OUTSIDE RECORDS SUMMARY | 2023-02-27 04:59 | External Medical Summary | Summary of Care ---
Author Name Unknown Organization [facility] Address [address] [place] [address] Phone [phone] Care Team Providers Care Sales Project Engineer Name Role Phone Harriet Ellis MD Primary Care Prov ider Reason for Visit * Reason Comments Ultrasound Encounter Details Date Type Department Care Team Description 10/06/2022 Office Visit Back [facility] Obstetrics [facility], [place] [address] [place], [place] [phone] Saleem Aguilera, [address] [place], [place] [phone] History of abnormality in previous , currently *; History of IUFD; Echogenic intracardiac focus of fetus on ultrasound Allergies Active Allergy Reactions Severity Noted Date Comments Pollen Other (Please comment) 03/06/2016 documented as of this encounter (statuses as of 10/06/2022) Medications Medication Sig Dispensed Refills Start Date [...] as of this encounter (statuses as of 10/06/2022) Active Problems Problem Noted Date Echogenic intracardiac [...] as of this encounter (statuses as of 10/06/2022) Resolved Problems Problem Noted Date Resolved Date [...] as of this encounter (statuses as of 10/06/2022) Immunizations Name Administration Dates Next Due COVID-19 [...] as of this encounter Progress Notes * Saleem Aguilera, DO - 10/06/2022 9:36 AM EDT [facility] VISIT Latesha Hernandez is at 19w1d who presents to [facility] for an ultrasound and follow- up of her high riskpregnancy. PHYSICAL EXAM: General: pleasant, alert and oriented, no acute distress She is being seen today by Maternal- Medicine for the following reasons: Problem List Items Addressed This Visit History of IUFD She presents for a anatomy survey. She has a history of a prior child with multiple anomalies, including CHD. This child was diagnosed with Trisomy 22, and the ended with a lossat term. In her last , we reviewed [...] but it is reassuring that no anomalies wereseen today. History of abnormality in previous , currently - Primary Echogenic intracardiac focus of fetus on ultrasound Reviewed that today's ultrasound notes an echogenic intracardiac focus (EIF). Explained that derik woman who is at low risk for aneuploidy (age less than 35, normal genetic screening), with an otherwise normal ultrasound, echogenic intracardiac focus (EIF) is generally considered a normal variant of and no further work-up is recommended. Explained that an echogenic intracardiac focus (EIF) has no impact on cardiac function. We reviewed today's ultrasound findings. (For full report, please refer to ultrasound report provided separately). Ms. Hernandez's questions were answered to her satisfaction. RECOMMENDATIONS: No follow-up with Maternal Medicine is necessary unless further questions or indications arise. Thank you for allowing us to participate in the care of this patient. Please call with any questions. Saleem Aguilera DO 10/06/2022 9:36 AM documented in this encounter Miscellaneous Notes * Assessment & Plan Note - Saleem Aguilera DO - 10/06/2022 9:35 AM EDT Associated Problem(s): Echogenic intracardiac focus of fetus on ultrasound Reviewed that today's ultrasound notes an echogenic intracardiac focus (EIF). Explained that derik woman who is at low risk for aneuploidy (age less than 35, normal genetic screening), with an otherwise normal ultrasound, echogenic intracardiac focus (EIF) is generally considered a normal variant of and no further work-up is recommended. Explained that an echogenic intracardiac focus (EIF) has no impact on cardiac function. * Assessment & Plan Note - Saleem Aguilera DO - 10/06/2022 9:33 AM EDT Associated Problem(s): History of IUFD She presents for a anatomy survey. She has a history of a prior child with multiple anomalies, including CHD. This child was diagnosed with Trisomy 22, and the ended with a lossat term. In her last , we reviewed [...] but it is reassuring that no anomalies wereseen today. documented in this encounter Plan of Treatment Upcoming Encounters Date Type Specialty Care Team Description 10/07/2022 Office Visit Gynecology Obstetrics Gareth Montelongo MD [address] [place] [address] Health Maintenance Due Date Last Done Comments [...] as of this encounter Visit Diagnoses Diagnosis History of abnormality in previous , currently - Primary with other poor obstetric history History of IUFD Echogenic intracardiac focus of fetus on ultrasound Abnormal findings on screening documented in this encounter Advance Directives Latest [...] and were consensually agreed upon. Care Teams Sales Project Engineer Relationship Specialty Start Date End Date Harriet Ellis MD [address] [place] [address] PCP - General Family Medicine 05/12/18 documented as of this encounter
--- OUTSIDE RECORDS SUMMARY | 2023-02-27 04:59 | External Medical Summary ---
Author Name Unknown Address Unknown Organization : Laboratory Report Ordering Provider Test Date Status JIM ANDREWS 10/07/2022 15:42:43 Final Observation Date Value Abnormality Reference (Units ) Status INTERPRETATION 10/07/2022 15:42:43 SEE BELOW Final Screen negative for open NTD . RISK FOR ONTD 10/07/2022 15:42:43 1:1400 Final CALC'D GESTATIONAL AGE 0810/07/2022 15:42:43 19.3 Final AFP, SERUM 10/07/2022 15:42:43 67.3 (ng/mL) Final AFP MOM 10/07/2022 15:42:43 1.39 Final Reference Range:
NTD <2 .50
IDD <1.90
TWINS <4.00
TWINS IDD <3.50
TRIPLETS <4.50
The AFP test result indicates that this patient is
screen negative for open NTD. It should be noted
that normal test results can never guarantee the
of a normal baby and that 2-3% of newborns
have some type of physical or mental defect, many
of which are undetectable through any known
diagnostic technique.
This is a screening test, not a diagnostic test.
This risk assessment report is based in part on
demographic data provided by the ordering
physician. Please notify the laboratory promptly
if any data are incorrect. For assistance with
recalculations, please call your local [email or web address] laboratory. For assistance with
interpretation of these results, please contact
your Local [email or web address] genetic counselor or
call [phone] ([phone]).
Interpretive Cutoffs
Screen Positive for Open NTD:
> or = 2.50 adjusted MOM
> or = 1.90 adjusted MOM for insulin-dependent diabetics
> or = 4.00 adjusted MOM for twins
> or = 3.50 adjusted MOM for twins insulin-dependent diabetics
> or = 4.50 adjusted MOM for triplets
For additional information, please refer to
[email or web address]/[email or web address]
(This link is being provided for
informational/educational purposes only.) DATE OF 10/07/2022 15:42:43 1995 Final COLLECTION DATE 10/07/2022 15:42:43 10/07/2022 Final MATERNAL WEIGHT 10/07/2022 15:42:43 172 (lbs ) Final EST'D DATE OF DELIVERY 10/07/2022 15:42:43 03/01/2023 Final ELSIE DETERMINED BY 10/07/2022 15:42:43 NG Final MOTHER'S ETHNIC ORIGIN 10/07/2022 15:42:43 WHITE Final NUMBER OF FETUSES 10/07/2022 15:42:43 1 Final INSULIN DEPEND DIABETIC 10/07/2022 15:42:43 NO Final REPEAT SPECIMEN 10/07/2022 15:42:43 NO Final HX OF NEURAL TUBE DEFECTS 10/07/2022 15:42:43 NO Final PREV DOWN SYND 10/07/2022 15:42:43 NO Final DONOR EGG 10/07/2022 15:42:43 NO Final DONOR AGE: EGG RETRIEVAL 10/07/2022 15:42:43 NOT GIVEN Final Test performed by [email or web address]
[address] [facility]
[place] [address]

Supervisory Historian: Marixa Najera MD,PHD,TIAN
Test Reported by Chapo Jackson,
[email or web address],
[address] [place], [place]
Enrique Etienne M.D., Ph.D., Director of Laboratories
, [facility] [id number] Performing Location
--- OUTSIDE RECORDS SUMMARY | 2023-02-27 04:59 | External Medical Summary | Summary of Care ---
Author Name Unknown Organization [facility] Address [address] [place] [address] Phone [phone] Care Team Providers Care Head Charger Name Role Phone Harriet Ellis MD Primary Care Prov ider Reason for Visit * Reason Onset Date Comments Advice 10/23/2022 Encounter Details Date Type Department Care Team Description 10/23/2022 Telephone Gynecology/Obstetics [place] [address] [place] [address] Jessica Junior PA-C [address] [place] [address] Advice Allergies Active Allergy Reactions Severity Noted Date Comments Pollen Other (Please comment) 03/06/2016 documented as of this encounter (statuses as of 10/23/2022) Medications Medication Sig Dispensed Refills Start Date [...] as of this encounter (statuses as of 10/23/2022) Active Problems Problem Noted Date Echogenic intracardiac [...] as of this encounter (statuses as of 10/23/2022) Resolved Problems Problem Noted Date Resolved Date [...] as of this encounter (statuses as of 10/23/2022) Immunizations Name Administration Dates Next Due COVID-19 [...] Telephone Encounter - Jessica Davila PA-C - 10/23/2022 12:32 PM EDT Spoke with patient. Patient reports that she did feel baby move since talking with Roxann López RN. Patient reports that she feels she is okay for now and does not feel that we need to listen to baby's heart rate on doppler at this time. Patient will call if any concerns with movements in the future. * Telephone Encounter - Roxann López RN - 10/23/2022 9:13 AM EDT Patient call transferred into clinic from call center. Patient has not felt baby move today and is wondering how long she should wait until she is concerned. [place] movement last night before bed. Had a little bit of breakfast but now is eating some more. Discussed with patient that at this stage of it can be totally normal to not feel consistent movement from baby or that baby has little movement but not feeling them. Advised to eat some more of her breakfast and to try a cold or sugary drink to see if feels movement then. * Telephone Encounter - CLAUDIA Kinney - 10/23/2022 9:08 AM EDT Patient complains of not feeling her baby move today call transferred to the nurse line. documented in this encounter Plan of Treatment Upcoming Encounters Date Type Specialty Care Team Description 11/12/2022 Office Visit Gynecology Obstetrics Jessica Junior PA-C [address] [place] [address] 12/10/2022 Office Visit Gynecology Obstetrics Jessica Junior PA-C [address] [place] [address] Health Maintenance Due Date Last Done Comments [...] and were consensually agreed upon. Care Teams Head Charger Relationship Specialty Start Date End Date Harriet Ellis MD [address] [place] [address] PCP - General Family Medicine 05/12/18 documented as of this encounter
--- OUTSIDE RECORDS SUMMARY | 2023-02-27 04:59 | External Medical Summary | Summary of Care ---
Author Name Unknown Organization [facility] Address [address] [place] [address] Phone [phone] Care Team Providers Care Cardiac Cath Tech Name Role Phone Harriet Ellis MD Primary Care Prov ider Reason for Visit * Reason Comments Ultrasound Encounter Details Date Type Department Care Team Description 10/06/2022 Office Visit Eggs Inspector Obstetrics [facility]aternal [facility], [place] [address] [place], [place] [phone] Saleem Aguilera, [address] [place], [place] [phone] History of abnormality in previous , currently [...] Hernandez is at 19w1d who presents to [facility] for an ultrasound and follow- up of [...] Office Visit Gynecology Obstetrics Gareth Montelongo MD [address] [place] [address] Health Maintenance Due Date Last Done Comments [...] and were consensually agreed upon. Care Teams Cardiac Cath Tech Relationship Specialty Start Date End Date Harriet Ellis MD [address] [place] [phone] PCP - General Family Medicine 05/12/18 documented as of this encounter
--- OUTSIDE RECORDS SUMMARY | 2023-02-27 04:59 | External Medical Summary | Summary of Care ---
Author Name Unknown Organization [facility] Address [address] [place] [address] Phone [phone] Care Team Providers Care Marine Radio Installer And Servicer Name Role Phone Harriet Ellis MD Primary Care Prov ider Reason for Visit * Reason Comments Outpatient Testing Encounter Details Date Type Department Care Team Description 10/07/2022 Laboratory Laboratory Patient Service [address] [phone] [address] [address] Arrived Allergies Active Allergy Reactions Severity Noted Date [...] Office Visit Gynecology Obstetrics Jessica Junior PA-C [address] [place] [address] 12/10/2022 Office Visit Gynecology Obstetrics Jessica Junior PA-C [address] [place] [address] Health Maintenance Due Date Last Done Comments [...] and were consensually agreed upon. Care Teams Marine Radio Installer And Servicer Relationship Specialty Start Date End Date Harriet Ellis MD [address] [place] [phone] PCP - General Family Medicine 05/12/18 documented as of this encounter
[2023-02-27] MEDS ORDERED: LACTATED RINGER'S 1,000 ML IV PRN (05:10)
[2023-02-27] MEDS ORDERED: OXYTOCIN 30 UNITS/NSS 30 UNITS/500 ML BAG IV PRN ×2 (05:10→09:33)
--- NOTE | 2023-02-27 05:16 | Delivery Summary ---
Vaginal Delivery Summary Date of Service February 27, 2023 Vaginal Delivery Summary 28 y/o F with onset of labor yesterday and planned delivery [place] [facility] delivered a full term viable female at home at 0325deliver with her present. Apgars and weight unknown. I delivered the placenta spontaneously and intact. There were no tears. EBL 100 ml. Final sponge and instrument count are correct. Mom and baby stable.
[2023-02-27 05:55] LABS: Hematocrit (blood only) 39.9 % (37.0-47.0); Hemoglobin 13.5 g/dl (12.0-16.0); Mean Corpuscular Hemoglobin 28.5 pg (25.0-34.0); Mean Corpuscular Hgb Conc 33.8 g/dL (32.0-36.0); Mean Corpuscular Volume 84.2 fL (80.0-100.0); Mean Platelet Volume 10.5 fL (9.4-12.4); Platelet Count 249 K/uL (130-400); RDW Coefficient of Variation 14.2 % (11.5-14.5); RDW Standard Deviation 43.6 fL (36.4-46.3); Red Blood Count 4.74 M/uL (4.20-5.40); White Blood Count 11.24 K/ul (4.8-10.8)
[2023-02-27] MEDS ORDERED: PRENATAL VITAMIN 1 TAB PO SCH (08:00)
[2023-02-27] MEDS ORDERED: DOCUSATE SODIUM 100 MG CAP PO SCH (08:00)
[2023-02-27] MEDS ORDERED: SODIUM CHLORIDE 0.65% NA SOLN 45 ML (OCEAN) PRN (08:33)
[2023-02-27] MEDS ORDERED: ACETAMINOPHEN 325 MG TAB PO PRN (09:33)
[2023-02-27] MEDS ORDERED: HYDROCORTISONE ACETATE 25 MG SUPP PR PRN (09:33)
[2023-02-27] MEDS ORDERED: BENZOCAINE 20% SPRY 85 APPLN/85 GM CAN EXT PRN (09:33)
[2023-02-27] MEDS ORDERED: DIPHTHERIA/TETANUS/PERTUSSIS Vaccine (Tdap, Age 7+yrs) 0.5mL SYR/VL IM ONE (09:33)
[2023-02-27] MEDS ORDERED: bisacodyL 10 MG SUPP PR PRN (09:33)
[2023-02-27] MEDS: IBUPROFEN 600 MG TAB PO PRN ×3 (11:00→20:51)
[2023-02-27] MEDS: NIRMATRELVIR/RITONAVIR 1 EA TAB PO SCH ×2 (12:35→20:51)
[2023-02-27] MEDS: DOCUSATE SODIUM 100 MG CAP PO SCH (20:51)
[2023-02-28 07:18] LABS: Hematocrit (blood only) 37.6 % (37.0-47.0); Hemoglobin 12.5 g/dl (12.0-16.0); Mean Corpuscular Hemoglobin 27.9 pg (25.0-34.0); Mean Corpuscular Hgb Conc 33.2 g/dL (32.0-36.0); Mean Corpuscular Volume 83.9 fL (80.0-100.0); Mean Platelet Volume 10.3 fL (9.4-12.4); Platelet Count 245 K/uL (130-400); RDW Coefficient of Variation 14.1 % (11.5-14.5); RDW Standard Deviation 43.4 fL (36.4-46.3); Red Blood Count 4.48 M/uL (4.20-5.40); White Blood Count 9.84 K/ul (4.8-10.8)
[2023-02-28] MEDS ORDERED: PRENATAL VITAMIN 1 TAB PO SCH (08:00)
--- NOTE | 2023-02-28 08:06 | Obstetrical Progress Note ---
Date of Service February 28, 2023 Assessment & Plan (1) Normal course: Continue routine care Anticipate discharge home today, discharge done with instructions and meds sent to pharmacy (2) COVID-19 affecting in third trimester: Subjective Ambulation: ambulating normally Voiding: no voiding problems Passing Gas:: Yes Diet Tolerance:: regular diet Lochia:: Small Feeding Type:: breast feeding Current Pain Level(1-10): 0 Doing well, currently in isolation due to COVID-19 infection No complaints at this time Would like to go home today if baby is discharged Physical Exam Constitutional WD/WN, vitals as above Respiratory normal respiratory effort, lungs clear to auscultation Cardiovascular RRR, no murmur, no edema Gastrointestinal (Abdomen) normal bowel sounds, soft, nontender, no hepatosplenomegaly Uterus below U Results & Data Vital Signs (Past 12 Hours) Vital Signs Temp Pulse Resp BP Pulse Ox O2 Del Method 02/28/23 00:04 36.4 C L 90 20 125/81 98 Room Air 02/27/23 20:55 Room Air
[2023-02-28] MEDS: DOCUSATE SODIUM 100 MG CAP PO SCH (08:42)
[2023-02-28] MEDS: NIRMATRELVIR/RITONAVIR 1 EA TAB PO SCH (08:43)
[2023-02-28] MEDS: IBUPROFEN 600 MG TAB PO PRN (08:44)
[2023-02-28] MEDS ORDERED: bisacodyL 5 MG TABEC PO SCH (20:00)
== END 2023-02-28 12:01 | disposition home or self-care (01) | DRG 807 ==
LOC: 4S1 04:47 → 4E1 08:01
DX: Z37.0 Single live birth; Z39.0 Encounter for care and examination of mother immediately after delivery